=== PATIENT | female | born 1980 | race Caucasian/White ===

== ENCOUNTER 2016-11-21 17:35 | Emergency (ER) | payer MEDICAID ==
--- NOTE | 2016-11-21 18:08 | ED Physician Documentation ---
PD HPI ABD PAIN - Stated complaint Stated Complaint: ABD PX/BLOOD/V - Chief complaint Chief Complaint: Abd Pain - History obtained from History obtained from: Patient - History of Present Illness Timing - onset: How many days ago (several) Timing - duration: Days (several) Timing - details: Gradual onset Pain level max: 6 Pain level now: 5 Quality: Aching, Pain Location: All over / everywhere Improved by: Other (nothing) Worsened by: Moving, Palpation Associated symptoms: Nausea, Vomiting, Diarrhea (ostomy) Similar symptoms before: Diagnosis (crohns disease) Recently seen: Not recently seen - Additional information Additional information: Patient is a 36-year-old female with history of Crohn's disease who has a colostomy in place. She is complaining of increased abdominal pain and vomiting. States that she feels she is dehydrated. Is not currently on any steroids at home. Her GI physician is at [facility]. Review of Systems Ten Systems: 10 systems reviewed and negative Constitutional: denies: Fever, Chills Nose: denies: Rhinorrhea / runny nose, Congestion Respiratory: denies: Cough GI: reports: Abdominal Pain, Nausea, Vomiting, Other (bleeding into stoma) Skin: denies: Rash Musculoskeletal: denies: Neck pain, Back pain Neurologic: denies: Focal weakness, Numbness, Headache PD PAST MEDICAL HISTORY - Past Medical History Cardiovascular: Hypertension Respiratory: Asthma Neuro: Headache/migraine, Motion sickness Endocrine/Autoimmune: None GI: GERD, Crohn's disease FOURTH OFFICER: Other : Kidney stones HEENT: None Psych: Anxiety Musculoskeletal: Chronic back pain Derm: Other - Past Surgical History Past Surgical History: Yes General: Colonoscopy, Other Ortho: ACL reconstruction /FOURTH OFFICER: Dilation and currettage - Present Medications Home Medications: Ambulatory Orders Medication Instructions Recorded Confirmed Albuterol Sulfate [Albuterol 8.5 gm IH Q4H PRN 02/13/15 11/21/16 Sulfate Hfa] Cetirizine [ZyrTEC] 20 mg PO DAILY 02/13/15 11/21/16 Diphenhydramine HCl [Benadryl] 25 mg PO BID 02/13/15 11/21/16 Omeprazole 20 mg PO DAILY 02/13/15 11/21/16 Ranitidine HCl 150 mg PO DAILY 02/13/15 11/21/16 Promethazine [Phenergan] 25 mg PO Q6H PRN #20 tab 05/01/15 11/21/16 Epinephrine HCl in 0.9 % NaCl 05/12/15 06/05/15 [Epinephrin-0.9% NaCl 16 mg/250] Ondansetron HCl [Zofran] 4 mg PO Q6H PRN #20 tablet 11/14/15 11/21/16 Morphine ER 30 mg PO .FREQ 01/04/16 11/21/16 Entyvio Infusion 02/28/16 oxyCODONE [Roxicodone] 10 mg PO Q6H PRN #20 tablet 06/02/16 11/21/16 Dicyclomine [Bentyl] 1 tab PO BID 11/21/16 11/21/16 Prednisone 40 mg PO DAILY #10 tablet 11/21/16 Sertraline HCl [Zoloft] 100 mg PO DAILY 11/21/16 11/21/16 - Allergies Allergies/Adverse Reactions: Allergies Allergy/AdvReac Type Severity Reaction Status Date / Time infliximab [From Remicade] Allergy Severe Anaphylaxis Verified 11/21/16 17:41 Iodinated Contrast Media - Allergy Severe Hives Verified 11/21/16 17:41 Oral and [Iodinated Contrast Media - IV Dye] iodine Allergy Severe Anaphylaxis Verified 11/21/16 17:41 shellfish derived Allergy Severe Nausea/Vomi Verified 11/21/16 17:41 ting Sulfa (Sulfonamide Allergy Severe Anaphylaxis Verified 11/21/16 17:41 Antibiotics) ,Hives venom-honey bee Allergy Severe Anaphylaxis Verified 11/21/16 17:41 ,Hives certolizumab pegol Allergy Intermediate Respiratory Verified 11/21/16 17:41 [From Cimzia] ,Nausea latex Allergy Intermediate Rash Verified 11/21/16 17:41 - Social History Does the pt smoke?: No Smoking Status: Never smoker Does the pt drink ETOH?: No Does the pt have substance abuse?: No - Immunizations Immunizations are current?: Yes - POLST Patient has POLST: No PD ED PE NORMAL - Vitals Vital signs reviewed: Yes - General General: Alert and oriented X 3, No acute distress, Well developed/nourished - HEENT HEENT: PERRL, Moist mucous membranes - Neck Neck: Supple, no meningeal sign - Cardiac Cardiac: RRR, Strong equal pulses - Respiratory Respiratory: No respiratory distress, Clear bilaterally - Abdomen Abdomen: Soft, Non tender, Non distended, Other (Colostomy in place with prolapsed intestines. No visible bleeding into the colostomy bag) - Derm Derm: Warm and dry - Neuro Neuro: Alert and oriented X 3 - Psych Psych: Normal mood, Normal affect Results - Vitals Vitals: Vital Signs - 24 hr 11/21/16 11/21/16 11/21/16 17:40 19:17 19:45 Temperature 36.2 C L Heart Rate 110 H 76 82 Respiratory 18 16 16 Rate Blood Pressure 148/92 H 120/80 122/65 O2 Saturation 98 96 98 11/21/16 11/21/16 20:10 20:40 Temperature 36.5 C Heart Rate 76 88 Respiratory 18 16 Rate Blood Pressure 140/81 H 130/68 O2 Saturation 98 97 Oxygen O2 Source Room air - Labs Labs: Laboratory Tests 11/21/16 11/21/16 11/21/16 18:10 18:10 18:50 WBC 9.1 RBC 4.90 Hgb 14.0 Hct 42.6 MCV 86.8 MCH 28.6 MCHC 32.9 RDW 13.9 Plt Count 233 MPV 8.5 Neut # 8.2 H Lymph # 0.8 L [place] # 0.2 Eos # 0.0 Baso # 0.0 Absolute Nucleated RBC 0.00 Nucleated RBCs 0.0 Sodium 140 Potassium 4.0 Chloride 107 Carbon Dioxide 24 Anion Gap 9.0 BUN 13 Creatinine 0.6 Estimated GFR (MDRD) 114 Glucose 108 H Calcium 9.5 Total Bilirubin 0.4 AST 32 ALT 12 Alkaline Phosphatase 71 Total Protein 8.0 Albumin 4.2 Globulin 3.8 Albumin/Globulin Ratio 1.1 Lipase 30 Urine Color YELLOW Urine Clarity CLEAR Urine pH 5.0 Ur Specific [place] 1.020 Urine Protein NEGATIVE Urine Glucose (UA) NEGATIVE Urine Ketones NEGATIVE Urine Occult Blood NEGATIVE Urine Nitrite NEGATIVE Urine Bilirubin NEGATIVE Urine Urobilinogen 0.2 (NORMAL) Ur Leukocyte Esterase NEGATIVE Ur Microscopic Review NOT INDICATED Urine Culture Comments NOT INDICATED Urine HCG, Qual NEGATIVE PD MEDICAL DECISION MAKING - ED course Complexity details: reviewed old records, reviewed results, re-evaluated patient , considered differential, d/w patient ED course: Patient is a 36-year-old female who presents to the emergency department with an apparent flare of her Crohn's colitis. She was given IV fluids, pain medication as well as corticosteroids. I discussed admission with the patient for further bowel rest and steroids. The patient declines this at this time. She states that she would like to try going home and that she will return if she worsens. Patient is well-appearing, nontoxic. Afebrile. Patient counseled regarding signs and symptoms for which I believe and urgent re-evaluation would be necessary. Patient with good understanding of and agreement to plan and is comfortable going home at this time This document was made in part using voice recognition software. While efforts are made to proofread this document, sound alike and grammatical errors may occur. Patient does not appear to have a bowel obstruction at this time, no peritoneal signs on abdominal exam. No evidence of sepsis. No evidence of significant GI bleeding. Departure - Departure Disposition: 01 Home, Self Care Clinical Impression: Abdominal pain Crohn's colitis Qualifiers: Digestive disease complication type: without complication Qualified Code(s): K50.10 - Crohn's disease of large intestine without complications Condition: Good Instructions: Disease Crohn Dc Follow-Up: Devika Latham DO [Primary Care Provider] - Within 1 week Prescriptions: Prednisone 40 mg PO DAILY #10 tablet Comments: Return if you worsen. Discharge Date/Time: 11/21/16 20:40
[2016-11-21] MEDS ORDERED: HYDROmorphone 1 MG/ML SYRINGE IVP STA ×3 (18:16→20:01)
[2016-11-21] MEDS ORDERED: SODIUM CHLORIDE 0.9% 1,000 ML IV ONE ×2 (18:16)
[2016-11-21] MEDS ORDERED: methylPREDNISolone SUCCINATE 125 MG/2 ML VIAL IVP STA (18:16)
[2016-11-21] MEDS ORDERED: ONDANSETRON 4 MG/2 ML VIAL IVP STA (18:17)
[2016-11-21] MEDS ORDERED: ONDANSETRON 4 MG/2 ML VIAL ONE (18:21)
[2016-11-21] MEDS ORDERED: methylPREDNISolone SUCCINATE 125 MG/2 ML VIAL IVP ONE (18:21)
[2016-11-21] MEDS ORDERED: HYDROmorphone 1 MG/ML SYRINGE ONE ×3 (18:21→20:05)
[2016-11-21 18:24] LABS: BASOPHILS % (AUTO) 0.5 %; HCT - HEMATOCRIT 42.6 % (37.0-47.0); LYMPHOCYTES # (AUTO) 0.8 10^3/uL (1.5-3.5); LYMPHOCYTES % (AUTO) 8.2 %; MEAN CORPUSCULAR HEMOGLOBIN 28.6 pg (27.0-31.0); MEAN CORPUSCULAR HGB CONC 32.9 g/dL (32.0-36.0); MEAN CORPUSCULAR VOLUME 86.8 fL (81.0-99.0); MEAN PLATELET VOLUME 8.5 fL (7.9-10.8); MONOCYTES # (AUTO) 0.2 10^3/uL (0.0-1.0); MONOCYTES % (AUTO) 1.9 %; NEUTROPHILS # (AUTO) 8.2 10^3/uL (1.5-6.6); NEUTROPHILS % (AUTO) 89.4 %; RED CELL DISTRIBUTION WIDTH 13.9 % (12.0-15.0); UNCORRECTED WHITE BLOOD COUNT 9.1 x10^3/uL; WHITE BLOOD COUNT 9.1 x10^3/uL (4.8-10.8)
[2016-11-21 18:34] LABS: ALBUMIN/GLOBULIN RATIO 1.1 (1.0-2.2); BILIRUBIN,TOTAL 0.4 mg/dL (0.2-1.0); CALCIUM 9.5 mg/dL (8.5-10.3); CREATININE 0.6 mg/dL (0.4-1.0)
[2016-11-21 19:10] LABS: BILIRUBIN,URINE NEGATIVE (NEGATIVE)
[2016-11-21 19:12] LABS: HCG UR QUAL NEGATIVE; UA CHARGE (STRIP ONLY) YES; UR CULTURE IF IND NOT INDICATED
[2016-11-21] MEDS ORDERED: SUMAtriptan 6 MG/0.5 ML VIAL SUBQ STA (20:01)
[2016-11-21] MEDS ORDERED: SUMAtriptan 6 MG/0.5 ML VIAL SUBQ ONE (20:05)
[2016-11-21 20:44] VITALS: BP 130/68
== END 2016-11-21 20:40 | disposition home or self-care (01) ==
LOC: ED 17:35
DX: K50.10 Crohn's disease of large intestine without complications (principal); R10.84 Generalized abdominal pain
CPT/HCPCS: 80053; 81003; 81025; 83690; 85025; 96361; 96372; 96374; 96375; 96376; 99284; 99285; J1170; 81001; 87086

== ENCOUNTER 2016-12-09 00:49 | Outpatient (CLI) | payer MEDICAID | END 2016-12-09 00:50 | disposition critical access hospital (66) | LOC: EMS 00:49 | PROVIDERS: ATTEND Surgery | DX: R10.9 Unspecified abdominal pain (principal) | CPT/HCPCS: A0425; A0427 ==

== ENCOUNTER 2016-12-09 01:08 | Emergency (ER) | payer MEDICAID ==
[2016-12-09] MEDS ORDERED: HYDROmorphone 1 MG/ML SYRINGE IVP STA ×4 (01:16→04:12)
[2016-12-09] MEDS ORDERED: ONDANSETRON 4 MG/2 ML VIAL IVP STA (01:16)
[2016-12-09] MEDS ORDERED: methylPREDNISolone SUCCINATE 40 MG/ML VIAL IVP STA (01:17)
[2016-12-09] MEDS ORDERED: HYDROmorphone 1 MG/ML SYRINGE ONE ×4 (01:21→04:15)
[2016-12-09] MEDS ORDERED: ONDANSETRON 4 MG/2 ML VIAL ONE (01:21)
[2016-12-09] MEDS ORDERED: methylPREDNISolone SUCCINATE 40 MG/ML VIAL ONE (01:21)
== END 2016-12-09 04:58 | disposition short-term general hospital (02) ==
DX: K43.3 Parastomal hernia with obstruction, without gangrene (principal); K50.114 Crohn's disease of large intestine with abscess; K50.113 Crohn's disease of large intestine with fistula; Z93.2 Ileostomy status; K80.80 Other cholelithiasis without obstruction; I10 Essential (primary) hypertension
CPT/HCPCS: 36415; 74176; 80053; 83605; 83690; 84703; 85025; 96374; 96375; 96376; 99284; J1170

== ENCOUNTER 2016-12-09 04:46 | Outpatient (CLI) | payer MEDICAID | END 2016-12-09 04:47 | disposition short-term general hospital (02) | LOC: EMS 04:46 | PROVIDERS: ATTEND Surgery | DX: R10.9 Unspecified abdominal pain (principal) | CPT/HCPCS: A0425; A0426 ==

== ENCOUNTER 2016-12-16 07:35 | Outpatient (CLI) | payer MEDICAID | END 2016-12-16 07:36 | disposition critical access hospital (66) | LOC: EMS 07:35 | PROVIDERS: ATTEND Surgery | DX: R10.9 Unspecified abdominal pain (principal) | CPT/HCPCS: A0425; A0429 ==

== ENCOUNTER 2016-12-16 07:59 | Emergency (ER) | payer MEDICAID ==
[2016-12-16] MEDS ORDERED: PIPERACILLIN/TAZOBACTAM 3.375 GM in SODIUM CHLORIDE 0.9% MINIBAG 100 ML IV STA (08:11)
[2016-12-16] MEDS ORDERED: VANCOMYCIN INJ 1 GM in SODIUM CHLORIDE 0.9% 250 ML IV STA (08:11)
[2016-12-16] MEDS ORDERED: HYDROmorphone 1 MG/ML SYRINGE IVP STA ×3 (08:11→10:15)
[2016-12-16] MEDS ORDERED: HYDROmorphone 1 MG/ML SYRINGE ONE ×2 (08:21→10:31)
--- NOTE | 2016-12-16 08:28 | ED Physician Documentation ---
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 and numerous surgeries seen at [facility] and transferred to [facility] last week per pt report it sounds like she had a blockage related to the ostomy - perhaps a volvulus or intuss through the stoma (calling for CT and op report, paperwork pt brings with her from ostomy care - in any case she required emergent surgery , was admitted to [facility] for several days and was dced yesterday and arrived home last night this AM 5 AM she developed severe pain to the ostomy site and intractable NV no fever no CP SOA (hx PE was on lovenox during her [facility] stay until yesterday) + stool into bag erythema to abd wall noted in ER which pt states is new Review of Systems Constitutional: denies: Fever, Chills Cardiac: denies: Chest pain / pressure Respiratory: denies: Dyspnea GI: reports: Abdominal Pain, Nausea, Vomiting. 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: Other : Kidney stones HEENT: None Psych: Anxiety Musculoskeletal: Chronic back pain Derm: Other - Past Surgical History Past Surgical History: Yes General: Colonoscopy, Other Ortho: ACL reconstruction /PRODUCT MANAGENT INTERN: Dilation and currettage - Present Medications Home Medications: Ambulatory Orders Medication Instructions Recorded Confirmed Albuterol Sulfate [Albuterol 8.5 gm IH Q4H PRN 02/13/15 12/16/16 Sulfate Hfa] Cetirizine [ZyrTEC] 20 mg PO DAILY 02/13/15 12/16/16 Diphenhydramine HCl [Benadryl] 25 mg PO BID 02/13/15 12/16/16 Omeprazole 20 mg PO DAILY 02/13/15 12/16/16 Ranitidine HCl 150 mg PO DAILY 02/13/15 12/16/16 Promethazine [Phenergan] 25 mg PO Q6H PRN #20 tab 05/01/15 12/16/16 Epinephrine HCl in 0.9 % NaCl 1 mg IM PRN PRN 05/12/15 12/16/16 [Epinephrin-0.9% NaCl 16 mg/250] Morphine ER 30 mg PO .FREQ 01/04/16 12/16/16 Entyvio Infusion 1 mg INJ MAINTENANCE.IV 02/28/16 12/16/16 oxyCODONE [Roxicodone] 10 mg PO Q6H PRN #20 tablet 06/02/16 12/16/16 Dicyclomine [Bentyl] 10 tab PO BID 11/21/16 12/16/16 Sertraline HCl [Zoloft] 100 mg PO DAILY 11/21/16 12/16/16 Prednisone 30 mg PO DAILY 12/09/16 12/16/16 - Allergies Allergies/Adverse Reactions: Allergies Allergy/AdvReac Type Severity Reaction Status Date / Time infliximab [From Remicade] Allergy Severe Anaphylaxis Verified 12/09/16 01:17 Iodinated Contrast Media - Allergy Severe Hives Verified 12/09/16 01:17 Oral and [Iodinated Contrast Media - IV Dye] iodine Allergy Severe Anaphylaxis Verified 12/09/16 01:17 shellfish derived Allergy Severe Nausea/Vomi Verified 12/09/16 01:17 ting Sulfa (Sulfonamide Allergy Severe Anaphylaxis Verified 12/09/16 01:17 Antibiotics) ,Hives venom-honey bee Allergy Severe Anaphylaxis Verified 12/09/16 01:17 ,Hives certolizumab pegol Allergy Intermediate Respiratory Verified 12/09/16 01:17 [From Cimzia] ,Nausea latex Allergy Intermediate Rash Verified 12/09/16 01:17 - Social History Does the pt smoke?: No Smoking Status: Never smoker Does the pt drink ETOH?: No Does the pt have substance abuse?: No - Immunizations Immunizations are current?: Yes - POLST Patient has POLST: No PD ED PE NORMAL - Vitals Vital signs reviewed: Yes - General General: Alert and oriented X 3 - Neck Neck: Supple, no meningeal sign - Cardiac Cardiac: RRR - Respiratory Respiratory: No respiratory distress, Clear bilaterally - Abdomen Abdomen: Soft, Other (+ BS, soft, right abd ostomy dark red with some greyish discoloration to the visible bowel superior aspect, clear brown liquid in the bag, extensive surrounding erythema which pt reports is new, no crepitus) - Derm Derm: Other (abd wall eryythema) - Neuro Neuro: Alert and oriented X 3 Results - Vitals Vitals: Vital Signs - 24 hr 12/16/16 12/16/16 12/16/16 08:05 09:10 10:40 Temperature 36.2 C L 37.2 C Heart Rate 78 69 111 H Respiratory 28 H 21 20 Rate Blood Pressure 118/99 H 115/64 111/61 O2 Saturation 98 96 95 12/16/16 12:15 Temperature Heart Rate 80 Respiratory 20 Rate Blood Pressure 137/81 H O2 Saturation 98 Oxygen O2 Source Room air - Labs Labs: Laboratory Tests 12/16/16 12/16/16 12/16/16 08:19 08:19 08:19 WBC 9.4 RBC 4.34 Hgb 12.6 Hct 38.0 MCV 87.7 MCH 28.9 MCHC 33.0 RDW 14.7 Plt Count 243 MPV 8.3 Neut # 6.9 H Lymph # 1.8 [place] # 0.6 Eos # 0.1 Baso # 0.0 Absolute Nucleated RBC 0.00 Nucleated RBCs 0.0 Sodium 140 Potassium 3.2 L Chloride 103 Carbon Dioxide 28 Anion Gap 9.0 BUN 8 Creatinine 0.6 Estimated GFR (MDRD) 114 Glucose 109 H Lactic Acid 1.6 Calcium 8.8 Total Bilirubin 0.6 AST 17 ALT 12 Alkaline Phosphatase 43 Total Protein 6.7 Albumin 3.3 Globulin 3.4 Albumin/Globulin Ratio 1.0 Lipase 45 Serum HCG, Qual 12/16/16 08:19 WBC RBC Hgb Hct MCV MCH MCHC RDW Plt Count MPV Neut # Lymph # [place] # Eos # Baso # Absolute Nucleated RBC Nucleated RBCs Sodium Potassium Chloride Carbon Dioxide Anion Gap BUN Creatinine Estimated GFR (MDRD) Glucose Lactic Acid Calcium Total Bilirubin AST ALT Alkaline Phosphatase Total Protein Albumin Globulin Albumin/Globulin Ratio Lipase Serum HCG, Qual NEGATIVE - Rads (name of study) CT abd pelvis Radiology: See rad report (RUQ ostomy, parastomal hernia is smaller, hazy infiltratton of the fat in the ostomy c/w inflammatory dz, no fluid collection, no intramural gas collection or bowel wall thickening to suggest ischemia, mild bowel dilitation LUQ small bowel up to 4.1 cm, no FF free air, other chronic findings) PD MEDICAL DECISION MAKING - ED course ED course: received dc summary from [facility] - seems that pt had prolapse of the defunctionalized limb or the ileostomy with a large redundant loop that adhesed to the fascial edge and causing int vlvulus and obstruction - pt had this operated on ostomy appears a bit dark and dusky with possibly some ischemic discoloration superiorly - but seen by ostomy nurse who felt it seemed normal post op and subsequent CTdoes not indicate ischemia and the device does not seem to be too tight around the stoma, but ostomy nurse did note that there was no further output during her evaluation also seem to have extensive abd wall cellulitis - continuing to spread while in the ER, no cepritus, no subcut gas on CT - gave malcolmo and alfred after blood cx CT shows some dilated small bowel and there is no output in the ER thus far - but no clear obstruction in CT will call [facility] to discuss transferring pt back - Dr Mg accepts, transfer center [facility] confirms bed availability prior to transfer the stoma output did start again - approx 20 ml in bag at time of transfer Departure - Departure Disposition: 02 Transfer Acute Care Hosp Clinical Impression: Postoperative abdominal pain Condition: Fair Discharge Date/Time: 12/16/16 12:40
[2016-12-16] MEDS ORDERED: ONDANSETRON 4 MG/2 ML VIAL IVP STA ×2 (08:29→11:08)
[2016-12-16] MEDS ORDERED: SODIUM CHLORIDE 0.9% 1,000 ML IV ONE ×2 (08:29)
[2016-12-16] MEDS ORDERED: ONDANSETRON 4 MG/2 ML VIAL ONE ×2 (08:29→11:34)
[2016-12-16 08:33] LABS: BASOPHILS % (AUTO) 0.5 %; EOSINOPHILS # (AUTO) 0.1 10^3/uL (0.0-0.7); EOSINOPHILS % (AUTO) 0.9 %; HGB - HEMOGLOBIN 12.6 g/dL (12.0-16.0); LYMPHOCYTES # (AUTO) 1.8 10^3/uL (1.5-3.5); LYMPHOCYTES % (AUTO) 19.1 %; MEAN CORPUSCULAR HEMOGLOBIN 28.9 pg (27.0-31.0); MEAN CORPUSCULAR VOLUME 87.7 fL (81.0-99.0); MEAN PLATELET VOLUME 8.3 fL (7.9-10.8); MONOCYTES # (AUTO) 0.6 10^3/uL (0.0-1.0); MONOCYTES % (AUTO) 5.9 %; NEUTROPHILS # (AUTO) 6.9 10^3/uL (1.5-6.6); NEUTROPHILS % (AUTO) 73.6 %; RED BLOOD COUNT 4.34 10^6/uL (4.20-5.40); RED CELL DISTRIBUTION WIDTH 14.7 % (12.0-15.0); UNCORRECTED WHITE BLOOD COUNT 9.4 x10^3/uL; WHITE BLOOD COUNT 9.4 x10^3/uL (4.8-10.8)
[2016-12-16 08:45] LABS: BILIRUBIN,TOTAL 0.6 mg/dL (0.2-1.0); CALCIUM 8.8 mg/dL (8.5-10.3); CREATININE 0.6 mg/dL (0.4-1.0); POTASSIUM 3.2 mmol/L (3.5-5.0); TOTAL PROTEIN 6.7 g/dL (6.7-8.2)
--- NOTE | 2016-12-16 10:00 | CT Preliminary Report ---
Exam: CT Abdomen/Pelvis W/O IMPRESSION: 1. Infiltration of stomal fat compatible with inflammatory disease. 2. Mild dilation of left upper quadrant small bowel. 3. Cholelithiasis, left renal lithiasis, and other chronic or incidental findings. [facility] SITE ID: [id number]
--- NOTE | 2016-12-16 10:03 | CT Report ---
EXAM: CT ABDOMEN AND PELVIS EXAM DATE: 12/16/2016 09:35 AM. CLINICAL HISTORY: Post op pain, ostomy appears infected/? ischemic. COMPARISONS: 12/09/2016. TECHNIQUE: Routine helical CT imaging was performed through the abdomen and pelvis. IV contrast: None . Enteric contrast: No. Reconstructions: Coronal and sagittal. In accordance with CT protocol optimization, one or more of the following dose reduction techniques w ere utilized for this exam: automated exposure control, adjustment of mA and/or KV based on patient s ize, or use of iterative reconstructive technique. FINDINGS: Lung Bases: Unremarkable. Liver: Normal. No masses. Gallbladder/Bile Ducts: Gallstones. No ductal dilation. Spleen: Normal. Pancreas: Normal. Adrenal Glands: Normal. Kidneys: Multiple nonobstructing left renal calculi. No ureteral stone. No hydronephrosis. Peritoneal Cavity/Bowel: Right upper quadrant ostomy. Parastomal hernia of bowel much less prominent. Fecalization has resolved. Hazy infiltration of fat in the ostomy, compatible with clinical finding of inflammatory disease, but no definite fluid collection. Mild bowel dilation, with mostly fluid-misti led left upper quadrant small bowel loops measuring up to 4.1 cm. No mural gas, significant bowel wal l thickening, or other evidence of ischemia. No free fluid, free air, or lymphadenopathy. Unremarkabl e region of appendix. Pelvic Organs: Abnormal soft tissue in the right ischioanal fossa again noted, incompletely seen. The bladder and visualized pelvic organs are within normal limits. Vasculature: No aneurysms or other significant abnormality. Bones: No significant abnormality. Other: None. IMPRESSION: 1. Infiltration of stomal fat compatible with inflammatory disease. 2. Mild dilation of left upper quadrant small bowel. 3. Cholelithiasis, left renal lithiasis, and other chronic or incidental findings. [facility] Referring Provider Line: [phone] SITE ID: [id number]
[2016-12-16] MEDS ORDERED: POTASSIUM CHLOR 20 MEQ/100 ML 100 ML IV ONE (10:16)
[2016-12-16] MEDS ORDERED: POTASSIUM CHLOR 10 MEQ/100 ML 100 ML IV SCH (11:00)
[2016-12-16] MEDS ORDERED: POTASSIUM CHLOR 10 MEQ/100 ML 100 ML IV ONE (11:34)
[2016-12-16 13:58] VITALS: BP 137/81
== END 2016-12-16 12:40 | disposition short-term general hospital (02) ==
LOC: ED 07:59
DX: G89.18 Other acute postprocedural pain (principal); Z93.2 Ileostomy status; K50.90 Crohn's disease, unspecified, without complications; I10 Essential (primary) hypertension; J45.909 Unspecified asthma, uncomplicated; K21.9 Gastro-esophageal reflux disease without esophagitis; Z87.442 Personal history of urinary calculi
CPT/HCPCS: 36415; 74176; 80053; 83605; 83690; 84703; 85025; 87040; 96361; 96365; 96367; 96375; 96376; 99284; 99285; J1170

== ENCOUNTER 2016-12-16 12:28 | Outpatient (CLI) | payer MEDICAID | END 2016-12-16 12:29 | disposition short-term general hospital (02) | LOC: EMS 12:28 | PROVIDERS: ATTEND Surgery | DX: R10.9 Unspecified abdominal pain (principal) | CPT/HCPCS: A0425; A0426 ==

== ENCOUNTER 2016-12-22 11:18 | Emergency (ER) | payer MEDICAID ==
[2016-12-22] MEDS ORDERED: LACTATED RINGERS 1,000 ML IV STA (12:38)
[2016-12-22] MEDS ORDERED: SODIUM CHLORIDE 0.9% 1,000 ML IV ONE ×2 (12:38→12:59)
[2016-12-22] MEDS ORDERED: HYDROmorphone 1 MG/ML SYRINGE IVP STA (12:38)
[2016-12-22] MEDS ORDERED: ONDANSETRON 4 MG/2 ML VIAL IVP STA (12:38)
--- NOTE | 2016-12-22 12:42 | ED Physician Documentation ---
PD HPI ABD PAIN - Stated complaint Stated Complaint: N/V,ABD PX - Chief complaint Chief Complaint: Abd Pain - History obtained from History obtained from: Patient - History of Present Illness Timing - onset: Other (About 7 days postop from an ileostomy revision at [facility]. She is on high-dose pain medication, 30 mg of MS Contin twice a day and 5 mg of oxycodone every few hours. She got behind on her pain medication and started vomiting and now has abdominal cramps and high ostomy output and is unable to keep down her meds. No fevers.) Review of Systems Constitutional: reports: Fatigue. denies: Fever, Chills Cardiac: denies: Chest pain / pressure, Palpitations Respiratory: denies: Dyspnea, Cough GI: reports: Abdominal Pain, Nausea, Vomiting, Diarrhea. 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 : Kidney stones HEENT: None Psych: Anxiety Musculoskeletal: Chronic back pain Derm: Other - Past Surgical History Past Surgical History: Yes General: Colonoscopy, Other Ortho: ACL reconstruction /TISSUE INSERTER: Dilation and currettage - Present Medications Home Medications: Ambulatory Orders Medication Instructions Recorded Confirmed Albuterol Sulfate [Albuterol 8.5 gm IH Q4H PRN 02/13/15 12/22/16 Sulfate Hfa] Cetirizine [ZyrTEC] 20 mg PO DAILY 02/13/15 12/22/16 Diphenhydramine HCl [Benadryl] 25 mg PO BID 02/13/15 12/22/16 Omeprazole 20 mg PO DAILY 02/13/15 12/22/16 Ranitidine HCl 150 mg PO DAILY 02/13/15 12/22/16 Promethazine [Phenergan] 25 mg PO Q6H PRN #20 tab 05/01/15 12/22/16 Epinephrine HCl in 0.9 % NaCl 1 mg IM PRN PRN 05/12/15 12/22/16 [Epinephrin-0.9% NaCl 16 mg/250] Morphine ER 30 mg PO .FREQ 01/04/16 12/22/16 Entyvio Infusion 1 mg INJ MAINTENANCE.IV 02/28/16 12/22/16 oxyCODONE [Roxicodone] 10 mg PO Q6H PRN #20 tablet 06/02/16 12/22/16 Dicyclomine [Bentyl] 10 tab PO BID 11/21/16 12/22/16 Sertraline HCl [Zoloft] 100 mg PO DAILY 11/21/16 12/22/16 Prednisone 30 mg PO DAILY 12/09/16 12/22/16 - Allergies Allergies/Adverse Reactions: Allergies Allergy/AdvReac Type Severity Reaction Status Date / Time infliximab [From Remicade] Allergy Severe Anaphylaxis Verified 12/22/16 11:30 Iodinated Contrast Media - Allergy Severe Hives Verified 12/22/16 11:30 Oral and [Iodinated Contrast Media - IV Dye] iodine Allergy Severe Anaphylaxis Verified 12/22/16 11:30 shellfish derived Allergy Severe Nausea/Vomi Verified 12/22/16 11:30 ting Sulfa (Sulfonamide Allergy Severe Anaphylaxis Verified 12/22/16 11:30 Antibiotics) ,Hives venom-honey bee Allergy Severe Anaphylaxis Verified 12/22/16 11:30 ,Hives certolizumab pegol Allergy Intermediate Respiratory Verified 12/22/16 11:30 [From Cimzia] ,Nausea latex Allergy Intermediate Rash Verified 12/22/16 11:30 - Social History Does the pt smoke?: No Smoking Status: Never smoker Does the pt drink ETOH?: No Does the pt have substance abuse?: No - Immunizations Immunizations are current?: Yes - POLST Patient has POLST: No PD ED PE NORMAL - Vitals Vital signs reviewed: Yes - General General: Alert and oriented X 3, No acute distress - Abdomen Abdomen: Normal bowel sounds, Soft, Non tender, Other (Ostomy with watery output , ostomy itself looks fine) - Neuro Neuro: Alert and oriented X 3, Normal speech - Psych Psych: Normal mood, Normal affect Results - Vitals Vitals: Vital Signs - 24 hr 12/22/16 12/22/16 12/22/16 11:20 12:45 13:13 Temperature 36 C L Heart Rate 104 H 86 101 H Respiratory 18 20 18 Rate Blood Pressure 146/101 H 118/68 111/70 O2 Saturation 96 95 96 Oxygen O2 Source Room air - Labs Labs: Laboratory Tests 12/22/16 12/22/16 12:50 13:43 WBC 11.3 H RBC 5.21 Hgb 15.1 Hct 45.9 MCV 88.1 MCH 29.1 MCHC 33.0 RDW 14.8 Plt Count 372 MPV 8.1 Neut # 8.4 H Lymph # 2.0 [place] # 0.7 Eos # 0.1 Baso # 0.1 Absolute Nucleated RBC 0.00 Nucleated RBCs 0.0 Sodium 141 Potassium 3.6 Chloride 101 Carbon Dioxide 28 Anion Gap 12.0 BUN 18 Creatinine 0.7 Estimated GFR (MDRD) 95 Glucose 121 H Calcium 9.5 Total Bilirubin 0.7 AST 22 ALT 13 Alkaline Phosphatase 44 Total Protein 7.6 Albumin 3.8 Globulin 3.8 Albumin/Globulin Ratio 1.0 Lipase 34 PD MEDICAL DECISION MAKING - ED course ED course: 36-year-old woman with recent ileostomy revision presents with vomiting and high ostomy output likely related to narcotic withdrawal from missing doses. After IV fluids, Zofran, and IV narcotics she was feeling much better. Departure - Departure Disposition: 01 Home, Self Care Clinical Impression: Acute narcotic withdrawal, Abdominal pain Vomiting Qualifiers: Vomiting type: unspecified Vomiting Intractability: non-intractable Nausea presence: with nausea Qualified Code(s): R11.2 - Nausea with vomiting, unspecified Condition: Good Record reviewed to determine appropriate education?: Yes Instructions: ED Nausea Vomiting Comments: Call your doctor to arrange a follow up appointment. Make the next available appointment. In the interim return anytime if worse or if new symptoms develop.
[2016-12-22] MEDS ORDERED: HYDROmorphone 1 MG/ML SYRINGE ONE (12:59)
[2016-12-22] MEDS ORDERED: ONDANSETRON 4 MG/2 ML VIAL ONE (12:59)
[2016-12-22 13:12] LABS: BASOPHILS # (AUTO) 0.1 10^3/uL (0.0-0.1); BASOPHILS % (AUTO) 0.7 %; EOSINOPHILS # (AUTO) 0.1 10^3/uL (0.0-0.7); EOSINOPHILS % (AUTO) 0.6 %; HCT - HEMATOCRIT 45.9 % (37.0-47.0); HGB - HEMOGLOBIN 15.1 g/dL (12.0-16.0); LYMPHOCYTES % (AUTO) 17.5 %; MEAN CORPUSCULAR HEMOGLOBIN 29.1 pg (27.0-31.0); MEAN CORPUSCULAR VOLUME 88.1 fL (81.0-99.0); MEAN PLATELET VOLUME 8.1 fL (7.9-10.8); MONOCYTES # (AUTO) 0.7 10^3/uL (0.0-1.0); MONOCYTES % (AUTO) 6.6 %; NEUTROPHILS # (AUTO) 8.4 10^3/uL (1.5-6.6); NEUTROPHILS % (AUTO) 74.6 %; RED BLOOD COUNT 5.21 10^6/uL (4.20-5.40); RED CELL DISTRIBUTION WIDTH 14.8 % (12.0-15.0); UNCORRECTED WHITE BLOOD COUNT 11.3 x10^3/uL; WHITE BLOOD COUNT 11.3 x10^3/uL (4.8-10.8)
[2016-12-22 14:02] LABS: BILIRUBIN,TOTAL 0.7 mg/dL (0.2-1.0); CALCIUM 9.5 mg/dL (8.5-10.3); CREATININE 0.7 mg/dL (0.4-1.0); POTASSIUM 3.6 mmol/L (3.5-5.0); TOTAL PROTEIN 7.6 g/dL (6.7-8.2)
[2016-12-22] MEDS ORDERED: MORPHINE ER 15 MG TABLET PO STA (14:17)
[2016-12-22 14:18] VITALS: BP 129/61
== END 2016-12-22 14:41 | disposition home or self-care (01) ==
LOC: ED 11:18
DX: F11.23 Opioid dependence with withdrawal (principal); R10.9 Unspecified abdominal pain; R11.2 Nausea with vomiting, unspecified; T40.2X6A Underdosing of other opioids, initial encounter; Z91.138 Patient's unintentional underdosing of medication regimen for other reason; I10 Essential (primary) hypertension; K21.9 Gastro-esophageal reflux disease without esophagitis; K50.90 Crohn's disease, unspecified, without complications; Z93.2 Ileostomy status; Z79.52 Long term (current) use of systemic steroids
CPT/HCPCS: 36415; 80053; 83690; 85025; 96361; 96374; 96375; 99283; 99284; A9270; J1170

== ENCOUNTER 2017-01-16 20:45 | Emergency (ER) | payer MEDICAID ==
--- NOTE | 2017-01-16 22:07 | ED Physician Documentation ---
PD HPI ABD PAIN - Stated complaint Stated Complaint: ABD PX - Chief complaint Chief Complaint: Wound - History obtained from History obtained from: Patient - History of Present Illness Timing - onset: How many days ago (2-3) Timing - details: Gradual onset Pain level now: 8 Quality: Pain Radiation: Other (no radiation) Improved by: Laying still Worsened by: Palpation Associated symptoms: No: Fever, Nausea, Vomiting Recently seen: Not recently seen - Additional information Additional information: patient has Crohn's disease, c/o 2-3 days of waxing and waning (size and pain) mass right buttock. 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 She contacted her GI physician rena and was advised to go to ED for antibiotics "and something for the pain , maybe an anti-inflammatory" (per patient). 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: Other : Kidney stones HEENT: None Psych: Anxiety Musculoskeletal: Chronic back pain Derm: Other - Past Surgical History Past Surgical History: Yes General: Bowel surgery, Gastric surgery, Colonoscopy, Other Ortho: ACL reconstruction /ELECTRIC POWERLINE EXAMINER: Dilation and currettage - Present Medications Home Medications: Ambulatory Orders Medication Instructions Recorded Confirmed Albuterol Sulfate [Albuterol 8.5 gm IH Q4H PRN 02/13/15 12/22/16 Sulfate Hfa] Cetirizine [ZyrTEC] 20 mg PO DAILY 02/13/15 12/22/16 Diphenhydramine HCl [Benadryl] 25 mg PO BID 02/13/15 12/22/16 Omeprazole 20 mg PO DAILY 02/13/15 12/22/16 Ranitidine HCl 150 mg PO DAILY 02/13/15 12/22/16 Promethazine [Phenergan] 25 mg PO Q6H PRN #20 tab 05/01/15 12/22/16 Epinephrine HCl in 0.9 % NaCl 1 mg IM PRN PRN 05/12/15 12/22/16 [Epinephrin-0.9% NaCl 16 mg/250] Morphine ER 30 mg PO .FREQ 01/04/16 12/22/16 Entyvio Infusion 1 mg INJ MAINTENANCE.IV 02/28/16 12/22/16 oxyCODONE [Roxicodone] 10 mg PO Q6H PRN #20 tablet 06/02/16 12/22/16 Dicyclomine [Bentyl] 10 tab PO BID 11/21/16 12/22/16 Sertraline HCl [Zoloft] 100 mg PO DAILY 11/21/16 12/22/16 Prednisone 30 mg PO DAILY 12/09/16 12/22/16 Ciprofloxacin HCl [Cipro] 500 mg PO BID #19 tablet 01/16/17 - Allergies Allergies/Adverse Reactions: Allergies Allergy/AdvReac Type Severity Reaction Status Date / Time infliximab [From Remicade] Allergy Severe Anaphylaxis Verified 01/16/17 21:04 Iodinated Contrast- Oral and Allergy Severe Hives Verified 01/16/17 21:04 IV Dye [Iodinated Contrast Media - IV Dye] iodine Allergy Severe Anaphylaxis Verified 01/16/17 21:04 shellfish derived Allergy Severe Nausea/Vomi Verified 01/16/17 21:04 ting Sulfa (Sulfonamide Allergy Severe Anaphylaxis Verified 01/16/17 21:04 Antibiotics) ,Hives venom-honey bee Allergy Severe Anaphylaxis Verified 01/16/17 21:04 ,Hives certolizumab pegol Allergy Intermediate Respiratory Verified 01/16/17 21:04 [From Cimzia] ,Nausea latex Allergy Intermediate Rash Verified 01/16/17 21:04 - Social History Does the pt smoke?: No Smoking Status: Former smoker Does the pt drink ETOH?: No Does the pt have substance abuse?: No - Immunizations Immunizations are current?: Yes - POLST Patient has POLST: No PD ED PE NORMAL - Vitals Vital signs reviewed: Yes - General General: Alert and oriented X 3, No acute distress, Well developed/nourished - Abdomen Abdomen: Normal bowel sounds, Soft, Non tender, Non distended, Other (ostomy bag in place, empty. ) PD ED PE EXPANDED - Female Female visual: 1 - tenderness (half-dollar size (diameter) firm, tender nodule without fluctuance or discharge. there is mild surrounding erythema. I also note two sites of cutaneous fistula adjacent to this area (near the area but clear of the nodule as well as the erythema)) Results - Vitals Vitals: Vital Signs - 24 hr 01/16/17 21:00 Temperature 36.3 C L Heart Rate 97 Respiratory 17 Rate Blood Pressure 122/83 H O2 Saturation 97 Oxygen O2 Source Room air PD MEDICAL DECISION MAKING - ED course Complexity details: reviewed old records, considered differential, d/w patient ED course: Patient feels that when the abscesses she's had in the past are in this early stage, antibiotics alone tend to work well, Cipro specifically. She will return if worse in any way, and will f/u with her GI physician as soon as next appointment is available. Departure - Departure Disposition: 01 Home, Self Care Clinical Impression: Abscess Condition: Good Instructions: ED Staph Infec Abx Tx Only Follow-Up: Devika Latham DO [Primary Care Provider] - (3-5 days) Prescriptions: Ciprofloxacin HCl [Cipro] 500 mg PO BID #19 tablet
[2017-01-16] MEDS ORDERED: KETOROLAC 60 MG/2 ML VIAL IM STA (22:32)
[2017-01-16] MEDS ORDERED: HYDROmorphone 1 MG/ML SYRINGE IM STA (22:32)
[2017-01-16] MEDS ORDERED: CIPROFLOXACIN 250 MG TABLET PO STA (22:35)
[2017-01-16] MEDS ORDERED: HYDROmorphone 1 MG/ML SYRINGE ONE (22:38)
[2017-01-16] MEDS ORDERED: CIPROFLOXACIN 250 MG TABLET PO ONE (22:38)
[2017-01-16] MEDS ORDERED: KETOROLAC 60 MG/2 ML VIAL ONE (22:38)
[2017-01-16 23:08] VITALS: BP 120/74
== END 2017-01-16 23:08 | disposition home or self-care (01) ==
LOC: ED 20:45
DX: L02.31 Cutaneous abscess of buttock (principal); I10 Essential (primary) hypertension; K50.90 Crohn's disease, unspecified, without complications
CPT/HCPCS: 96372; 99283; A9270; J1170

== ENCOUNTER 2017-01-24 20:01 | Emergency (ER) | payer MEDICAID ==
[2017-01-24] MEDS ORDERED: HYDROmorphone 1 MG/ML SYRINGE IVP STA ×4 (20:31→23:48)
[2017-01-24] MEDS ORDERED: SODIUM CHLORIDE 0.9% 1,000 ML IV ONE (20:31)
[2017-01-24] MEDS ORDERED: KETOROLAC 60 MG/2 ML VIAL IVP STA (20:31)
[2017-01-24] MEDS ORDERED: ONDANSETRON 4 MG/2 ML VIAL IVP STA (20:31)
[2017-01-24] MEDS ORDERED: HYDROmorphone 1 MG/ML SYRINGE ONE ×4 (20:35→23:53)
[2017-01-24] MEDS ORDERED: KETOROLAC 30 MG/ML VIAL ONE (20:35)
[2017-01-24] MEDS ORDERED: ONDANSETRON 4 MG/2 ML VIAL ONE (20:35)
[2017-01-24 20:50] LABS: BASOPHILS # (AUTO) 0.1 10^3/uL (0.0-0.1); BASOPHILS % (AUTO) 0.7 %; EOSINOPHILS # (AUTO) 0.1 10^3/uL (0.0-0.7); LYMPHOCYTES % (AUTO) 23.6 %; MEAN CORPUSCULAR HEMOGLOBIN 29.1 pg (27.0-31.0); MEAN CORPUSCULAR HGB CONC 33.2 g/dL (32.0-36.0); MEAN CORPUSCULAR VOLUME 87.6 fL (81.0-99.0); MEAN PLATELET VOLUME 8.2 fL (7.9-10.8); MONOCYTES # (AUTO) 0.5 10^3/uL (0.0-1.0); MONOCYTES % (AUTO) 6.2 %; NEUTROPHILS # (AUTO) 5.8 10^3/uL (1.5-6.6); NEUTROPHILS % (AUTO) 68.5 %; NUCLEATED RED BLOOD CELLS AUTO 0.1 /100WBC; RED BLOOD COUNT 4.46 10^6/uL (4.20-5.40); RED CELL DISTRIBUTION WIDTH 14.3 % (12.0-15.0); UNCORRECTED WHITE BLOOD COUNT 8.5 x10^3/uL; WHITE BLOOD COUNT 8.5 x10^3/uL (4.8-10.8)
[2017-01-24 21:01] LABS: ALBUMIN/GLOBULIN RATIO 1.1 (1.0-2.2); BILIRUBIN,TOTAL 0.7 mg/dL (0.2-1.0); CALCIUM 9.1 mg/dL (8.5-10.3); CREATININE 0.7 mg/dL (0.4-1.0); POTASSIUM 3.9 mmol/L (3.5-5.0); TOTAL PROTEIN 7.3 g/dL (6.7-8.2)
[2017-01-24] MEDS ORDERED: DEXAMETHASONE 10 MG/ML VIAL IVP STA (21:20)
[2017-01-24 21:22] LABS: PH,URINE 5.5 PH (5.0-7.5)
[2017-01-24] MEDS ORDERED: DEXAMETHASONE 10 MG/ML VIAL ONE (21:22)
[2017-01-24 21:44] LABS: BILIRUBIN,URINE NEGATIVE (NEGATIVE); UA w/ MICROSCOPIC CHARGE YES
[2017-01-24 21:45] LABS: UR CULTURE IF IND NOT INDICATED; WBC,URINE >25 /HPF (0-5)
[2017-01-24] MEDS ORDERED: cefTRIAXone 1 GM in SODIUM CHLORIDE 0.9% MINIBAG 100 ML IV STA (21:56)
[2017-01-24] MEDS ORDERED: cefTRIAXone 1 GM VIAL ONE (22:10)
--- NOTE | 2017-01-24 23:51 | CT Preliminary Report ---
Exam: CT KUB IMPRESSION: 1. Moderate left-sided hydronephrosis due to an obstructing stone at the left UPJ measuring 8.2 mm. 2. There are at least 3 additional punctate left mid and upper kidney stones. No right-sided kidney s tones visualized. 3. Prior bowel surgery with a right lower quadrant ostomy. No bowel obstruction. Appendix is not visu alized. Colon is predominantly decompressed. 4. There is soft tissue extending from the right aspect of the anus into the right ischioanal fossa, with appearance suggestive of right-sided perianal fistula/abscess. [facility] SITE ID: [id number]
--- NOTE | 2017-01-24 23:54 | CT Report ---
EXAM: CT ABDOMEN AND PELVIS (CT KUB) EXAM DATE: 01/24/2017 11:35 PM. CLINICAL HISTORY: Left flank pain; history of stones and has UTI. COMPARISONS: 12/16/2016. TECHNIQUE: Routine axial helical CT imaging was performed through the abdomen and pelvis without IV c ontrast. Reconstructions: Coronal and sagittal. In accordance with CT protocol optimization, one or more of the following dose reduction techniques w ere utilized for this exam: automated exposure control, adjustment of mA and/or KV based on patient s ize, or use of iterative reconstructive technique. FINDINGS: Right Kidney/Ureter: No stones. No hydronephrosis or hydroureter. No definite renal mass within the c onfines of a non-contrast exam. Left Kidney/Ureter: There is mild to moderate left hydronephrosis due to an obstructing stone at the left UPJ measuring 8.2 mm (image 70 series 3). There are 3 punctate stones within the left mid to low er kidney. No definite renal mass within the confines of a non-contrast exam. Abdominal Solid Organs: Abdominal parenchymal organs are without significant abnormality within the c onfines of a noncontrast exam. Bowel: Prior bowel surgery with a right lower quadrant ostomy. Appendix is not visualized. Lymph Nodes: No definite pathologic lymphadenopathy. Fluid: No significant ascites. Vasculature: Normal caliber aorta. Pelvis: No bladder stones. Small soft tissue density abnormalities extending from the level of the re ctum into the right ischioanal fossa noted (image 164 series 3), worrisome for a renal fistula/absces s. Bones: No definite suspicious bony lesions demonstrated. Lower Chest: No significant lung base consolidation or effusion. IMPRESSION: 1. Moderate left-sided hydronephrosis due to an obstructing stone at the left UPJ measuring 8.2 mm. 2. There are at least 3 additional punctate left mid and upper kidney stones. No right-sided kidney s tones visualized. 3. Prior bowel surgery with a right lower quadrant ostomy. No bowel obstruction. Appendix is not visu alized. Colon is predominantly decompressed. 4. There is soft tissue extending from the right aspect of the anus into the right ischioanal fossa, with appearance suggestive of right-sided perianal fistula/abscess. [facility] Referring Provider Line: [phone] SITE ID: [id number]
[2017-01-24 23:58] VITALS: BP 139/75
--- NOTE | 2017-01-25 00:07 | ED Physician Documentation ---
PD HPI ABD PAIN - Stated complaint Stated Complaint: SIDE PX - Chief complaint Chief Complaint: Abd Pain - History obtained from History obtained from: Patient - History of Present Illness Timing - onset: How many hours ago (1-2), Today Timing - duration: Hours (1-2 hours ago, had onset of severe sharp stabbing left flank pain. Feeling similar to kidney stones in the past. Had not noted dysuria recently. She has had frequent UTIs as well. Hisoty ro Crohns and recent ileostomy, and has been having pain from that. Also has fistula perirectally for which she has been on Cipro for about 2 weeks. Has not had vaginal discharge. Denies rash nor sores in back.) Timing - details: Abrupt onset, Still present Quality: Sharp, Pain Location: LLQ Radiation: Left flank Improved by: No: Eating, Vomiting, Position Worsened by: No: Eating, Moving, Breathing, Position, Palpation Associated symptoms: Nausea, Vomiting (few times). No: Fever, Diarrhea, Constipation, Dysuria, Chest pain Similar symptoms before: Diagnosis (kidney stones, has passed them in the past, without need for prior stents/surgery.) Recently seen: Emergency Dept (end of November for problems related to recent ileostomy, done for problems from Crohns. Had CT at that time which showed incidental left kidney stones, with largest being about 7 mm.) Review of Systems Constitutional: denies: Fever, Chills Nose: denies: Rhinorrhea / runny nose, Congestion Throat: denies: Sore throat Respiratory: denies: Cough GI: reports: Nausea. 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 HEENT: None Psych: Anxiety Musculoskeletal: Chronic back pain Derm: Other - Past Surgical History Past Surgical History: Yes General: Bowel surgery, Gastric surgery, Colonoscopy, Other Ortho: ACL reconstruction /APARTMENT LEASING CONSULTANT: Dilation and currettage - Present Medications Home Medications: Ambulatory Orders Medication Instructions Recorded Confirmed Albuterol Sulfate [Albuterol 8.5 gm IH Q4H PRN 02/13/15 12/22/16 Sulfate Hfa] Cetirizine [ZyrTEC] 20 mg PO DAILY 02/13/15 12/22/16 Diphenhydramine HCl [Benadryl] 25 mg PO BID 02/13/15 12/22/16 Omeprazole 20 mg PO DAILY 02/13/15 12/22/16 Ranitidine HCl 150 mg PO DAILY 02/13/15 12/22/16 Promethazine [Phenergan] 25 mg PO Q6H PRN #20 tab 05/01/15 12/22/16 Epinephrine HCl in 0.9 % NaCl 1 mg IM PRN PRN 05/12/15 12/22/16 [Epinephrin-0.9% NaCl 16 mg/250] Morphine ER 30 mg PO .FREQ 01/04/16 12/22/16 Entyvio Infusion 1 mg INJ MAINTENANCE.IV 02/28/16 12/22/16 oxyCODONE [Roxicodone] 10 mg PO Q6H PRN #20 tablet 06/02/16 12/22/16 Dicyclomine [Bentyl] 10 tab PO BID 11/21/16 12/22/16 Sertraline HCl [Zoloft] 100 mg PO DAILY 11/21/16 12/22/16 Prednisone 30 mg PO DAILY 12/09/16 12/22/16 Ciprofloxacin HCl [Cipro] 500 mg PO BID #19 tablet 01/16/17 Cephalexin [Keflex] 500 mg PO QID #24 capsule 01/25/17 Naproxen 375 mg PO BID #20 tablet 01/25/17 oxyCODONE [Roxicodone] 10 mg PO Q4H PRN #20 tablet 01/25/17 - Allergies Allergies/Adverse Reactions: Allergies Allergy/AdvReac Type Severity Reaction Status Date / Time infliximab [From Remicade] Allergy Severe Anaphylaxis Verified 01/16/17 21:04 Iodinated Contrast- Oral and Allergy Severe Hives Verified 01/16/17 21:04 IV Dye [Iodinated Contrast Media - IV Dye] iodine Allergy Severe Anaphylaxis Verified 01/16/17 21:04 shellfish derived Allergy Severe Nausea/Vomi Verified 01/16/17 21:04 ting Sulfa (Sulfonamide Allergy Severe Anaphylaxis Verified 01/16/17 21:04 Antibiotics) ,Hives venom-honey bee Allergy Severe Anaphylaxis Verified 01/16/17 21:04 ,Hives certolizumab pegol Allergy Intermediate Respiratory Verified 01/16/17 21:04 [From Cimzia] ,Nausea latex Allergy Intermediate Rash Verified 01/16/17 21:04 - Social History Does the pt smoke?: No Smoking Status: Former smoker Does the pt drink ETOH?: No Does the pt have substance abuse?: No - Immunizations Immunizations are current?: Yes - POLST Patient has POLST: No PD ED PE NORMAL - Vitals Vital signs reviewed: Yes - General General: Alert and oriented X 3, Well developed/nourished, Other (appears in significant pain) - Neck Neck: Supple, no meningeal sign, No adenopathy - Cardiac Cardiac: RRR, No murmur - Respiratory Respiratory: Clear bilaterally - Abdomen Abdomen: Normal bowel sounds, Soft, Non distended, No organomegaly, Other (left sided ileostomy noted. Normal surrounding skin. ) - Female Female : Deferred - Rectal Rectal: Deferred - Back Back: Other (left CVA tenderness) - Derm Derm: Normal color, Warm and dry - Neuro Neuro: Alert and oriented X 3, No motor deficit, Normal speech Results - Vitals Vitals: Vital Signs - 24 hr 01/24/17 01/24/17 01/24/17 20:04 20:49 21:12 Temperature 36.0 C L Heart Rate 94 72 72 Respiratory 20 20 16 Rate Blood Pressure 159/112 H 151/98 H 132/67 H O2 Saturation 100 99 98 01/24/17 01/24/17 22:15 23:58 Temperature Heart Rate 80 69 Respiratory 16 18 Rate Blood Pressure 133/79 H 139/75 H O2 Saturation 100 98 Oxygen O2 Source Room air - Labs Labs: Laboratory Tests 01/24/17 01/24/17 01/24/17 20:40 20:40 21:18 WBC 8.5 RBC 4.46 Hgb 13.0 Hct 39.0 MCV 87.6 MCH 29.1 MCHC 33.2 RDW 14.3 Plt Count 237 MPV 8.2 Neut # 5.8 Lymph # 2.0 [place] # 0.5 Eos # 0.1 Baso # 0.1 Absolute Nucleated RBC 0.01 Nucleated RBCs 0.1 Sodium 137 Potassium 3.9 Chloride 103 Carbon Dioxide 25 Anion Gap 9.0 BUN 13 Creatinine 0.7 Estimated GFR (MDRD) 95 Glucose 98 Calcium 9.1 Total Bilirubin 0.7 AST 20 ALT 11 Alkaline Phosphatase 52 Total Protein 7.3 Albumin 3.9 Globulin 3.4 Albumin/Globulin Ratio 1.1 Lipase 22 Urine Color YELLOW Urine Clarity CLOUDY Urine pH 5.5 Ur Specific [place] 1.025 Urine Protein TRACE Urine Glucose (UA) NEGATIVE Urine Ketones NEGATIVE Urine Occult Blood LARGE H Urine Nitrite POSITIVE H Urine Bilirubin NEGATIVE Urine Urobilinogen 0.2 (NORMAL) Ur Leukocyte Esterase MODERATE H Urine RBC 11-25 H Urine WBC >25 H Ur Epithelial Cells RARE Renal Tubular Ur Squamous Epith Cells MANY Squamous H Urine Bacteria Many H Urine Casts 26-50 Hyaline Casts Urine Starch PRESENT Urine Mucus Moderate Strands Ur Microscopic Review INDICATED Urine Culture Comments NOT INDICATED - Rads (name of study) KUB CT Radiology: Prelim report reviewed (proximal ureteral stone with mild hydronephrosis. ) PD MEDICAL DECISION MAKING - ED course Complexity details: considered differential (She is in considerable pain. States she has been taking baseline pain meds regularly as Rx. Has not run out. So the pain is acutely the new stone. She does have some pain med tolerance, so took repeated doses of Dilaudid to control the current pain of the ureteral stone. It did improve with repeated doses. She does have UTI, but has no fever and normal WBC. Had not had preceding flank pain. So seems cystitis and not pyelonephritis per se. Important as the patient is feeling improved with pain meds, given IV dose of Rocephin (has been on PO Cipro for fistula, so developed UTI on this) and is feeling better, would prefer to go home. If it were pyelo with stone/obstruction, then more urgent stenting would be appropriate. I offered potential admission and more appropriate transfer to [facility] or such with Urology and hospitalist. However she would like to try going home with oral meds. To return if pain not controlled well orally or if worsening illness (fevers, malaise, vomiting, etc) that may suggest pyelo rather than just cystitis. ), d/w patient Departure - Departure Disposition: 01 Home, Self Care Clinical Impression: Ureterolithiasis, Abdominal pain Urinary tract infection Qualifiers: Urinary tract infection type: acute cystitis Hematuria presence: with hematuria Qualified Code(s): N30.01 - Acute cystitis with hematuria Condition: Stable Record reviewed to determine appropriate education?: Yes Instructions: ED Stone Renal W [place], ED UTI Cystitis Female Follow-Up: [facility] [Provider Group] Devika Latham DO [Primary Care Provider] - Prescriptions: Cephalexin [Keflex] 500 mg PO QID #24 capsule Naproxen 375 mg PO BID #20 tablet oxyCODONE [Roxicodone] 10 mg PO Q4H PRN #20 tablet PRN Reason: Pain Comments: Drink lots of fluids. Continue your Morphine twice daily. Increase the Oxycodone 10 mg to every 3-4 hours as needed for acute pain of the kidney stone. Add Naproxen twice daily for a week. Cephalexin 4 times daily for UTI. Return if worsening/ not controlled pain. Also if fevers, vomiting, general sickness, as there would be concern of kidney infection and it can get "blocked " because of the stone and not clear with just antibiotics. Call Urologist if not better in couple days. See your Pain Specialist Thursday as planned. Forms: Activity restrictions Discharge Date/Time: 01/25/17 00:17
== END 2017-01-25 00:17 | disposition home or self-care (01) ==
LOC: ED 20:01
DX: N20.1 Calculus of ureter (principal); N30.01 Acute cystitis with hematuria; Z87.440 Personal history of urinary (tract) infections; Z87.891 Personal history of nicotine dependence; Z93.2 Ileostomy status; Z98.890 Other specified postprocedural states
CPT/HCPCS: 36415; 74176; 80053; 81001; 83690; 85025; 96374; 96375; 96376; 99284; J1170; 81003; 87086

== ENCOUNTER 2017-01-28 17:00 | Emergency (ER) | payer MEDICAID ==
[2017-01-28] MEDS ORDERED: SODIUM CHLORIDE 0.9% 1,000 ML IV ONE ×2 (17:12→17:14)
[2017-01-28] MEDS ORDERED: ONDANSETRON 4 MG/2 ML VIAL IVP STA (17:12)
[2017-01-28] MEDS ORDERED: ONDANSETRON 4 MG/2 ML VIAL ONE (17:14)
[2017-01-28] MEDS ORDERED: HYDROmorphone 1 MG/ML SYRINGE IVP STA ×2 (17:26→19:08)
[2017-01-28] MEDS ORDERED: HYDROmorphone 1 MG/ML SYRINGE ONE ×2 (17:37→19:09)
[2017-01-28 17:38] LABS: BASOPHILS # (AUTO) 0.1 10^3/uL (0.0-0.1); BASOPHILS % (AUTO) 0.8 %; EOSINOPHILS # (AUTO) 0.1 10^3/uL (0.0-0.7); EOSINOPHILS % (AUTO) 0.7 %; HCT - HEMATOCRIT 43.6 % (37.0-47.0); HGB - HEMOGLOBIN 14.5 g/dL (12.0-16.0); LYMPHOCYTES # (AUTO) 2.1 10^3/uL (1.5-3.5); LYMPHOCYTES % (AUTO) 26.8 %; MEAN CORPUSCULAR HEMOGLOBIN 28.9 pg (27.0-31.0); MEAN CORPUSCULAR HGB CONC 33.3 g/dL (32.0-36.0); MEAN CORPUSCULAR VOLUME 86.9 fL (81.0-99.0); MEAN PLATELET VOLUME 8.5 fL (7.9-10.8); MONOCYTES # (AUTO) 0.4 10^3/uL (0.0-1.0); MONOCYTES % (AUTO) 5.1 %; NEUTROPHILS # (AUTO) 5.2 10^3/uL (1.5-6.6); NEUTROPHILS % (AUTO) 66.6 %; RED BLOOD COUNT 5.02 10^6/uL (4.20-5.40); RED CELL DISTRIBUTION WIDTH 14.2 % (12.0-15.0); UNCORRECTED WHITE BLOOD COUNT 7.8 x10^3/uL; WHITE BLOOD COUNT 7.8 x10^3/uL (4.8-10.8)
[2017-01-28 18:08] LABS: ALBUMIN/GLOBULIN RATIO 1.1 (1.0-2.2); BILIRUBIN,TOTAL 0.6 mg/dL (0.2-1.0); CALCIUM 9.4 mg/dL (8.5-10.3); CREATININE 0.6 mg/dL (0.4-1.0); POTASSIUM 3.4 mmol/L (3.5-5.0); TOTAL PROTEIN 7.6 g/dL (6.7-8.2)
[2017-01-28 18:27] LABS: HCG UR QUAL NEGATIVE
--- NOTE | 2017-01-28 18:41 | Ultrasound Preliminary Report ---
Exam: US Retroperitoneal IMPRESSION: Mild left hydronephrosis; no stone visualized and both ureteral jets present. [facility] SITE ID: [id number]
--- NOTE | 2017-01-28 18:44 | Ultrasound Report ---
EXAM: RENAL ULTRASOUND EXAM DATE: 01/28/2017 06:19 PM. CLINICAL HISTORY: Nausea and vomit ting recent UPJ stone on CT, left. COMPARISON: 10/15/2015. Also CT scan dated 12/16/2016. TECHNIQUE: Real-time scanning was performed with static images obtained. Difficult study due to habit us. FINDINGS: Right Kidney: 13.0 x 4.6 x 5.9 cm. Normal echotexture with no stones, contour-deforming masses, or hy dronephrosis. Left Kidney: 13.1 x 6.5 x 6.1 cm. Mild hydronephrosis with slight dilation of renal pelvis. No stone visualized. Otherwise unremarkable. Bladder: Bilateral jets seen. The prevoid bladder volume was 284. cc. IMPRESSION: Mild left hydronephrosis; no stone visualized and both ureteral jets present. [facility] Referring Provider Line: [phone] SITE ID: [id number]
[2017-01-28 19:10] LABS: BILIRUBIN,URINE NEGATIVE (NEGATIVE); PH,URINE 7.5 PH (5.0-7.5); UA CHARGE (STRIP ONLY) YES; UR CULTURE IF IND NOT INDICATED
--- NOTE | 2017-01-28 19:30 | XRAY Preliminary Report ---
Exam: XR Abdomen 1 View IMPRESSION: No change of left ureteral stone. [facility] SITE ID: [id number]
--- NOTE | 2017-01-28 19:32 | XRAY Report ---
EXAM: ABDOMEN RADIOGRAPHY EXAM DATE: 01/28/2017 07:10 PM. CLINICAL HISTORY: Recent left UPJ stone. COMPARISON: CT KUB dated 24 January 2017. TECHNIQUE: 1 view. FINDINGS: Bowel Gas Pattern: Scattered collections of large and small bowel gas with no focal dilation. Small a mount of stool. Other: Previous described proximal left ureteral stone unchanged in position at about the L3 level. IMPRESSION: No change of left ureteral stone. [facility] Referring Provider Line: [phone] SITE ID: [id number]
[2017-01-28] MEDS ORDERED: HYDROmorphone 2 MG TABLET PO STA (20:06)
[2017-01-28] MEDS ORDERED: HYDROmorphone 2 MG TABLET ONE (20:19)
--- NOTE | 2017-01-28 20:25 | ED Physician Documentation ---
PD HPI ABD PAIN - Stated complaint Stated Complaint: VOMITING - Chief complaint Chief Complaint: Abd Pain - History obtained from History obtained from: Patient, Family - Additional information Additional information: This patient is a 36-year-old female with history of Crohn's disease with fistulization to the rectum. She had a diverting ileostomy in 2014 that was revised recently. More recently she was diagnosed with a kidney stone at the left UPJ. The stone is 8 mm. She chose to go home and presented tonight with a complaint of nausea vomiting and abdominal pain. The patient however think she is having symptoms more related to opiate withdrawal. She is on morphine and oxycodone. She has been out of the morphine for 2 days. She is trying to see a new pain physician with an overall goal of getting off of her pain medications. She has had multiple episodes of nausea vomiting. Her ileostomy output has been adequate. She has had lower urinary symptoms without fever. There is been no complaints of chest pain or shortness of breath. Review of systems: For pertinent positive and negatives in the review of systems please see history of present illness. Otherwise all other systems have been reviewed and are negative. Dragon disclaimer: Parts of this medical record were created using voice recognition technology. Because of the inherent limitations of this system occasional same sounding word substitutions do occur and persist despite proofreading. Please read the document for context. 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 HEENT: None Psych: Anxiety Musculoskeletal: Chronic back pain Derm: Other - Past Surgical History Past Surgical History: Yes General: Bowel surgery, Gastric surgery, Colonoscopy, Other Ortho: ACL reconstruction /QUALITY IMPROVEMENT ENGINEER: Dilation and currettage - Present Medications Home Medications: Ambulatory Orders Medication Instructions Recorded Confirmed Albuterol Sulfate [Albuterol 8.5 gm IH Q4H PRN 02/13/15 12/22/16 Sulfate Hfa] Cetirizine [ZyrTEC] 20 mg PO DAILY 02/13/15 12/22/16 Diphenhydramine HCl [Benadryl] 25 mg PO BID 02/13/15 12/22/16 Omeprazole 20 mg PO DAILY 02/13/15 12/22/16 Ranitidine HCl 150 mg PO DAILY 02/13/15 12/22/16 Promethazine [Phenergan] 25 mg PO Q6H PRN #20 tab 05/01/15 12/22/16 Epinephrine HCl in 0.9 % NaCl 1 mg IM PRN PRN 05/12/15 12/22/16 [Epinephrin-0.9% NaCl 16 mg/250] Morphine ER 30 mg PO .FREQ 01/04/16 12/22/16 Entyvio Infusion 1 mg INJ MAINTENANCE.IV 02/28/16 12/22/16 oxyCODONE [Roxicodone] 10 mg PO Q6H PRN #20 tablet 06/02/16 12/22/16 Dicyclomine [Bentyl] 10 tab PO BID 11/21/16 12/22/16 Sertraline HCl [Zoloft] 100 mg PO DAILY 11/21/16 12/22/16 Prednisone 30 mg PO DAILY 12/09/16 12/22/16 Cephalexin [Keflex] 500 mg PO QID #24 capsule 01/25/17 Naproxen 375 mg PO BID #20 tablet 01/25/17 HYDROmorphone [Dilaudid] 2 mg PO Q6H PRN #20 tablet 01/28/17 - Allergies Allergies/Adverse Reactions: Allergies Allergy/AdvReac Type Severity Reaction Status Date / Time infliximab [From Remicade] Allergy Severe Anaphylaxis Verified 01/16/17 21:04 Iodinated Contrast- Oral and Allergy Severe Hives Verified 01/16/17 21:04 IV Dye [Iodinated Contrast Media - IV Dye] iodine Allergy Severe Anaphylaxis Verified 01/16/17 21:04 shellfish derived Allergy Severe Nausea/Vomi Verified 01/16/17 21:04 ting Sulfa (Sulfonamide Allergy Severe Anaphylaxis Verified 01/16/17 21:04 Antibiotics) ,Hives venom-honey bee Allergy Severe Anaphylaxis Verified 01/16/17 21:04 ,Hives certolizumab pegol Allergy Intermediate Respiratory Verified 01/16/17 21:04 [From Cimzia] ,Nausea latex Allergy Intermediate Rash Verified 01/16/17 21:04 - Social History Does the pt smoke?: No Smoking Status: Former smoker Does the pt drink ETOH?: No Does the pt have substance abuse?: No - Immunizations Immunizations are current?: Yes - POLST Patient has POLST: No PD ED PE NORMAL - General General: Other (Large habitus female in mild distress secondary to nausea and vomiting) - HEENT HEENT: Atraumatic - Cardiac Cardiac: RRR, No murmur, No gallop, No rub - Respiratory Respiratory: No respiratory distress, Clear bilaterally - Abdomen Abdomen: Other (Obese abdomen with mild diffuse tenderness. Bowel tones increased Ileostomy appears to be functioning) - Rectal Rectal: Other (No evidence of perirectal fistula on examination) - Extremities Extremities: No deformity, No tenderness to palpate - Neuro Neuro: Alert and oriented X 3, No motor deficit, No sensory deficit Results - Vitals Vitals: Vital Signs - 24 hr 01/28/17 01/28/17 01/28/17 17:03 18:24 19:16 Temperature 36.2 C L Heart Rate 91 66 66 Respiratory 20 20 18 Rate Blood Pressure 153/102 H 119/66 119/74 O2 Saturation 100 99 99 Oxygen O2 Source Room air - Labs Labs: Laboratory Tests 01/28/17 01/28/17 01/28/17 17:28 17:48 18:12 WBC 7.8 RBC 5.02 Hgb 14.5 Hct 43.6 MCV 86.9 MCH 28.9 MCHC 33.3 RDW 14.2 Plt Count 255 MPV 8.5 Neut # 5.2 Lymph # 2.1 [place] # 0.4 Eos # 0.1 Baso # 0.1 Absolute Nucleated RBC 0.00 Nucleated RBCs 0.0 Sodium 140 Potassium 3.4 L Chloride 103 Carbon Dioxide 25 Anion Gap 12.0 BUN 9 Creatinine 0.6 Estimated GFR (MDRD) 114 Glucose 98 Calcium 9.4 Total Bilirubin 0.6 AST 17 ALT 10 Alkaline Phosphatase 51 Total Protein 7.6 Albumin 3.9 Globulin 3.7 Albumin/Globulin Ratio 1.1 Lipase 25 Urine Color Urine Clarity Urine pH Ur Specific [place] Urine Protein Urine Glucose (UA) Urine Ketones Urine Occult Blood Urine Nitrite Urine Bilirubin Urine Urobilinogen Ur Leukocyte Esterase Ur Microscopic Review Urine Culture Comments Urine HCG, Qual Urine Opiates Screen POSITIVE H Ur Oxycodone Screen POSITIVE H Urine Methadone Screen NEGATIVE Ur Propoxyphene Screen NEGATIVE Ur Barbiturates Screen NEGATIVE Ur Tricyclics Screen NEGATIVE Ur Phencyclidine Scrn NEGATIVE Ur Amphetamine Screen NEGATIVE U Methamphetamines Scrn NEGATIVE U Benzodiazepines Scrn NEGATIVE Urine Cocaine Screen NEGATIVE U Cannabinoids Screen POSITIVE H 01/28/17 01/28/17 18:12 18:12 WBC RBC Hgb Hct MCV MCH MCHC RDW Plt Count MPV Neut # Lymph # [place] # Eos # Baso # Absolute Nucleated RBC Nucleated RBCs Sodium Potassium Chloride Carbon Dioxide Anion Gap BUN Creatinine Estimated GFR (MDRD) Glucose Calcium Total Bilirubin AST ALT Alkaline Phosphatase Total Protein Albumin Globulin Albumin/Globulin Ratio Lipase Urine Color YELLOW Urine Clarity CLEAR Urine pH 7.5 Ur Specific [place] 1.010 1.010 Urine Protein NEGATIVE Urine Glucose (UA) NEGATIVE Urine Ketones NEGATIVE Urine Occult Blood NEGATIVE Urine Nitrite NEGATIVE Urine Bilirubin NEGATIVE Urine Urobilinogen 0.2 (NORMAL) Ur Leukocyte Esterase NEGATIVE Ur Microscopic Review NOT INDICATED Urine Culture Comments NOT INDICATED Urine HCG, Qual NEGATIVE Urine Opiates Screen Ur Oxycodone Screen Urine Methadone Screen Ur Propoxyphene Screen Ur Barbiturates Screen Ur Tricyclics Screen Ur Phencyclidine Scrn Ur Amphetamine Screen U Methamphetamines Scrn U Benzodiazepines Scrn Urine Cocaine Screen U Cannabinoids Screen PD MEDICAL DECISION MAKING - ED course Complexity details: reviewed old records, reviewed results, re-evaluated patient , considered differential, d/w patient, d/w family ED course: Patient is a 36-year-old female with history of severe Crohn's disease with fistulization and consequently had a diverting ileostomy. More recently the patient was diagnosed with a left UPJ stone 8 mm. She did well and wanted to follow-up with her physician and seek outpatient evaluation of the stone but came back tonight with nausea and vomiting. She does site that she thinks this is probably mostly due to narcotic withdrawal however my concern was for complications related to the kidney stone which very likely will not pass. We did do an ultrasound and there is only mild hydronephrosis and jets of the ureter suggesting that the stone is nonobstructing. A regular plain film KUB was done which showed the stone in the normal position which we suspected. Routine lab work on this patient including urinalysis is unremarkable. She improved markedly with the administration of opiates. At this point in time she feels much better she is attempting to get a new pain physician with a goal of decreasing her pain medication dosing. She does have a engaged primary care physician who is attempting to get her urology consultation at this time she does not want to be transferred for urgent treatment of this stone. Given the fact that this stone is nonobstructing and there is no evidence of infection this does not need to be done tonight. At this point in time she looks and feels much better Disposition: To home Clinical impression: 1. Left UPJ stone 8 mm-still present on plain film KUB but no evidence of significant obstruction of the left kidney on ultrasound 2. Suspect significant component of opiate withdrawal as causing symptoms tonight Departure - Departure Disposition: 01 Home, Self Care Clinical Impression: Kidney stone on left side Condition: Good Instructions: Kidney Stones Follow-Up: Devika Latham DO [Primary Care Provider] - Prescriptions: HYDROmorphone [Dilaudid] 2 mg PO Q6H PRN #20 tablet PRN Reason: Pain Comments: You have a large stone at 8 mm in the proximal left kidney. This stone will not move and needs to be addressed. Currently it is not obstructing the left kidney appreciably. Please talk to your doctor about it tomorrow and proceed with urology consultation
[2017-01-28 20:32] VITALS: BP 121/70
== END 2017-01-28 20:32 | disposition home or self-care (01) ==
LOC: ED 17:00
DX: N20.0 Calculus of kidney (principal); I10 Essential (primary) hypertension; Z87.891 Personal history of nicotine dependence; Z93.2 Ileostomy status
CPT/HCPCS: 36415; 74000; 76770; 80053; 80306; 81003; 81025; 83690; 85025; 96374; 96375; 96376; 99283; 99284; A9270; J1170; 81001; 87086

== ENCOUNTER 2017-02-25 14:27 | Emergency (ER) | payer MEDICAID ==
[2017-02-25 14:40] VITALS: BP 150/100
[2017-02-25] MEDS ORDERED: predniSONE 20 MG TABLET PO STA (15:54)
[2017-02-25] MEDS ORDERED: SODIUM CHLORIDE 0.9% 1,000 ML IV ONE (15:54)
[2017-02-25] MEDS ORDERED: ACETAMINOPHEN 1,000 MG/100 ML 100 ML IV STA (15:54)
--- NOTE | 2017-02-25 16:26 | ED Physician Documentation ---
History of Present Illness - Stated complaint Stated Complaint: FACIAL SWELLING/ HENRY - Chief complaint Chief Complaint: Abd Pain - Additonal information Additional information: hx from pt 36 female denies preg hx severe crohns with fistulas s/p diverting ileostomy in 2015 recently revised to Er today with sx of a crohns flare - increased abd cramping some NV and a facial rash and HENRY which she states is typical for her when she gets a crohns flare still having good output into ileostomy bag no fevers Review of Systems Constitutional: denies: Fever, Chills Cardiac: denies: Chest pain / pressure Respiratory: denies: Dyspnea, Cough GI: reports: Abdominal Pain, Nausea, Vomiting, Other (output into ileostomy bag) Endocrine: denies: Easy bruising / bleeding Immunocompromised: denies: Immunocompromised PD PAST MEDICAL HISTORY - Past Medical History Cardiovascular: Hypertension Respiratory: Asthma Neuro: Headache/migraine, Motion sickness Endocrine/Autoimmune: None GI: GERD, Crohn's disease 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 : Kidney 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 HEENT: None Psych: Anxiety Musculoskeletal: Chronic back pain Derm: Other - Past Surgical History Past Surgical History: Yes General: Bowel surgery, Gastric surgery, Colonoscopy, Other Ortho: ACL reconstruction /OB/GYN NURSE: Dilation and currettage - Present Medications Home Medications: Ambulatory Orders Medication Instructions Recorded Confirmed Albuterol Sulfate [Albuterol 8.5 gm IH Q4H PRN 02/13/15 02/25/17 Sulfate Hfa] Cetirizine [ZyrTEC] 20 mg PO DAILY 02/13/15 02/25/17 Omeprazole 20 mg PO DAILY 02/13/15 02/25/17 Ranitidine HCl 150 mg PO DAILY 02/13/15 02/25/17 Entyvio Infusion 1 mg INJ MAINTENANCE.IV 02/28/16 02/25/17 Dicyclomine [Bentyl] 10 tab PO BID 11/21/16 02/25/17 Sertraline HCl [Zoloft] 100 mg PO DAILY 11/21/16 02/25/17 Cephalexin [Keflex] 500 mg PO QID #24 capsule 01/25/17 02/25/17 - Allergies Allergies/Adverse Reactions: Allergies Allergy/AdvReac Type Severity Reaction Status Date / Time infliximab [From Remicade] Allergy Severe Anaphylaxis Verified 01/16/17 21:04 Iodinated Contrast- Oral and Allergy Severe Hives Verified 01/16/17 21:04 IV Dye [Iodinated Contrast Media - IV Dye] iodine Allergy Severe Anaphylaxis Verified 01/16/17 21:04 shellfish derived Allergy Severe Nausea/Vomi Verified 01/16/17 21:04 ting Sulfa (Sulfonamide Allergy Severe Anaphylaxis Verified 01/16/17 21:04 Antibiotics) ,Hives venom-honey bee Allergy Severe Anaphylaxis Verified 01/16/17 21:04 ,Hives certolizumab pegol Allergy Intermediate Respiratory Verified 01/16/17 21:04 [From Cimzia] ,Nausea latex Allergy Intermediate Rash Verified 01/16/17 21:04 - Social History Does the pt smoke?: No Smoking Status: Former smoker Does the pt drink ETOH?: No Does the pt have substance abuse?: No - Immunizations Immunizations are current?: Yes - POLST Patient has POLST: No PD ED PE NORMAL - Vitals Vital signs reviewed: Yes - Cardiac Cardiac: RRR - Respiratory Respiratory: No respiratory distress, Clear bilaterally - Abdomen Abdomen: Soft, Other (moderate TTP to left side of abd s rebound or guarding, ileostomy bag to right side of abdomen with gas and liquid stool) - Derm Derm: Other (erythematous rash across her cheeks) - Neuro Neuro: Alert and oriented X 3 Results - Vitals Vitals: Vital Signs - 24 hr 02/25/17 14:38 Temperature 36.7 C Heart Rate 76 Respiratory 17 Rate Blood Pressure 150/100 H O2 Saturation 100 Oxygen O2 Source Room air PD MEDICAL DECISION MAKING - ED course ED course: ordered IVG and steroids and planned to dc on steroids as pt advised she is normally txed with pt advised me she had recently managed to stop taking narcotics at all so I advised I would give orfirmev for pain pt seemed cheerful and amenable to this plan but when nurse went in she was upset, said she had taken tylenol already (though not on her med list and she did not mention that when i asked what she took for her Crohns) and then said she was leaving and would just call her own GI doctor and left without completion of care I went to speak to her to see what she was upset about but she had already left Departure - Departure Disposition: 07 Against Medical Advice Clinical Impression: Crohn disease Qualifiers: Gastrointestinal tract location: unspecified location Digestive disease complication type: unspecified complication Qualified Code(s): K50.919 - Crohn' s disease, unspecified, with unspecified complications Discharge Date/Time: 02/25/17 16:34
== END 2017-02-25 16:34 | disposition left against medical advice (07) ==
LOC: ED 14:27
DX: K50.919 Crohn's disease, unspecified, with unspecified complications (principal); Z53.29 Procedure and treatment not carried out because of patient's decision for other reasons; I10 Essential (primary) hypertension; K21.9 Gastro-esophageal reflux disease without esophagitis; J45.909 Unspecified asthma, uncomplicated; Z93.1 Gastrostomy status; Z98.84 Bariatric surgery status; Z87.891 Personal history of nicotine dependence
CPT/HCPCS: 99282; 99283

== ENCOUNTER 2017-04-24 18:21 | Emergency (ER) | payer MEDICAID ==
[2017-04-24] MEDS ORDERED: SODIUM CHLORIDE 0.9% 1,000 ML IV ONE ×3 (19:08→22:20)
[2017-04-24] MEDS ORDERED: ONDANSETRON 4 MG/2 ML VIAL IVP STA ×2 (19:14→23:26)
[2017-04-24] MEDS ORDERED: ONDANSETRON 4 MG/2 ML VIAL ONE ×2 (19:23→23:32)
[2017-04-24 19:29] LABS: BASOPHILS % (AUTO) 0.4 %; EOSINOPHILS % (AUTO) 0.1 %; HCT - HEMATOCRIT 38.3 % (37.0-47.0); HGB - HEMOGLOBIN 12.8 g/dL (12.0-16.0); LYMPHOCYTES # (AUTO) 0.5 10^3/uL (1.5-3.5); LYMPHOCYTES % (AUTO) 4.2 %; MEAN CORPUSCULAR HEMOGLOBIN 28.8 pg (27.0-31.0); MEAN CORPUSCULAR HGB CONC 33.5 g/dL (32.0-36.0); MEAN CORPUSCULAR VOLUME 85.8 fL (81.0-99.0); MEAN PLATELET VOLUME 8.7 fL (7.9-10.8); MONOCYTES # (AUTO) 0.5 10^3/uL (0.0-1.0); MONOCYTES % (AUTO) 4.6 %; NEUTROPHILS # (AUTO) 10.7 10^3/uL (1.5-6.6); NEUTROPHILS % (AUTO) 90.7 %; RED BLOOD COUNT 4.46 10^6/uL (4.20-5.40); RED CELL DISTRIBUTION WIDTH 14.2 % (12.0-15.0); UNCORRECTED WHITE BLOOD COUNT 11.8 x10^3/uL; WHITE BLOOD COUNT 11.8 x10^3/uL (4.8-10.8)
[2017-04-24 19:45] LABS: ALBUMIN/GLOBULIN RATIO 0.9 (1.0-2.2); CALCIUM 8.6 mg/dL (8.5-10.3); CREATININE 1.1 mg/dL (0.4-1.0); POTASSIUM 3.5 mmol/L (3.5-5.0); TOTAL PROTEIN 7.3 g/dL (6.7-8.2)
[2017-04-24] MEDS ORDERED: PROMETHAZINE INJ 25 MG in SODIUM CHLORIDE 0.9% 50 ML IV STA (20:19)
[2017-04-24] MEDS ORDERED: HYDROmorphone 1 MG/ML CARPUJECT IVP STA (20:23)
--- NOTE | 2017-04-24 20:27 | ED Physician Documentation ---
History of Present Illness - Stated complaint Stated Complaint: VOMITING/FEVER - Chief complaint Chief Complaint: Abd Pain - History obtained from History obtained from: Patient, Family - History of Present Illness Timing: Yesterday Pain level max: 10 Pain level now: 10 Improved by: nothing Worsened by: nothing - Additonal information Additional information: Patient is a 36-year-old female who has a diverting ileostomy in place, states that she ate at [id number] yesterday and has developed vomiting since that time. Unable to keep her meds down. States she had a fever of 103 at home. States has chronic diarrhea into the ostomy, but it does not seem to be putting out anymore into the ostomy than usual. Denies any localized abdominal tenderness, states everything hurts. States "I am just sick" Review of Systems Ten Systems: 10 systems reviewed and negative Constitutional: reports: Fever Ears: denies: Ear pain Nose: denies: Rhinorrhea / runny nose, Congestion Throat: denies: Sore throat Cardiac: denies: Chest pain / pressure Respiratory: denies: Cough, Wheezing GI: reports: Nausea, Vomiting : denies: Dysuria Skin: denies: Rash Musculoskeletal: denies: Neck pain, Back pain Neurologic: denies: Focal weakness, Numbness, Headache PD PAST MEDICAL HISTORY - Past Medical History Cardiovascular: Hypertension Respiratory: Asthma Neuro: Headache/migraine, Motion sickness Endocrine/Autoimmune: None GI: GERD, Crohn's disease 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 HEENT: None Psych: Anxiety Musculoskeletal: Chronic back pain Derm: Other - Past Surgical History Past Surgical History: Yes General: Bowel surgery, Gastric surgery, Colonoscopy, Other Ortho: ACL reconstruction /QUARTER SEAMER: Dilation and currettage - Present Medications Home Medications: Ambulatory Orders Medication Instructions Recorded Confirmed Albuterol Sulfate [Albuterol 8.5 gm IH Q4H PRN 02/13/15 04/24/17 Sulfate Hfa] Cetirizine [ZyrTEC] 20 mg PO DAILY 02/13/15 04/24/17 Omeprazole 20 mg PO DAILY 02/13/15 04/24/17 Ranitidine HCl 150 mg PO DAILY 02/13/15 04/24/17 Entyvio Infusion 1 mg INJ MAINTENANCE.IV 02/28/16 04/24/17 Dicyclomine [Bentyl] 10 tab PO BID 11/21/16 04/24/17 Sertraline HCl [Zoloft] 100 mg PO DAILY 11/21/16 04/24/17 Ondansetron Odt [Zofran] 4 mg TL Q6H PRN #10 tablet 04/24/17 Promethazine Supp [Phenergan Supp] 25 mg IA Q6HR PRN #14 supp 04/24/17 Promethazine [Phenergan] 25 mg PO Q6H PRN #10 tab 04/24/17 - Allergies Allergies/Adverse Reactions: Allergies Allergy/AdvReac Type Severity Reaction Status Date / Time infliximab [From Remicade] Allergy Severe Anaphylaxis Verified 04/24/17 19:34 Iodinated Contrast- Oral and Allergy Severe Hives Verified 04/24/17 19:34 IV Dye [Iodinated Contrast Media - IV Dye] iodine Allergy Severe Anaphylaxis Verified 04/24/17 19:34 shellfish derived Allergy Severe Nausea/Vomi Verified 04/24/17 19:34 ting Sulfa (Sulfonamide Allergy Severe Anaphylaxis Verified 04/24/17 19:34 Antibiotics) ,Hives venom-honey bee Allergy Severe Anaphylaxis Verified 04/24/17 19:34 ,Hives certolizumab pegol Allergy Intermediate Respiratory Verified 04/24/17 19:34 [From Cimzia] ,Nausea latex Allergy Intermediate Rash Verified 04/24/17 19:34 - Social History Does the pt smoke?: No Smoking Status: Never smoker Does the pt drink ETOH?: No Does the pt have substance abuse?: No - Immunizations Immunizations are current?: Yes - POLST Patient has POLST: No PD ED PE NORMAL - Vitals Vital signs reviewed: Yes - General General: Alert and oriented X 3, No acute distress - HEENT HEENT: Other (dry lips and tongue) - Neck Neck: Supple, no meningeal sign - Cardiac Cardiac: RRR - Respiratory Respiratory: No respiratory distress, Clear bilaterally - Abdomen Abdomen: Soft, Other (mild diffuse TTP without peritoneal signs. ileostomy in place) - Derm Derm: Warm and dry, No rash - Extremities Extremities: No edema - Neuro Neuro: Alert and oriented X 3 - Psych Psych: Normal mood, Normal affect Results - Vitals Vitals: Vital Signs - 24 hr 04/24/17 04/24/17 04/24/17 18:26 20:34 20:44 Temperature 37.5 C Heart Rate 79 101 H 103 H Respiratory 26 H 18 18 Rate Blood Pressure 119/70 137/92 H 137/92 H O2 Saturation 99 100 100 04/24/17 04/24/17 04/24/17 20:58 21:50 22:17 Temperature Heart Rate 102 H 99 102 H Respiratory 16 18 16 Rate Blood Pressure 133/61 H 123/70 138/80 H O2 Saturation 100 100 100 04/24/17 04/24/17 04/24/17 23:14 23:23 23:37 Temperature 36.3 C L 37.8 C H 36.5 C Heart Rate 104 H 103 H 96 Respiratory 20 17 16 Rate Blood Pressure 118/72 110/80 129/74 O2 Saturation 100 96 100 Oxygen O2 Source Room air - Labs Labs: Laboratory Tests 04/24/17 04/24/17 04/24/17 19:18 19:18 19:18 WBC 11.8 H RBC 4.46 Hgb 12.8 Hct 38.3 MCV 85.8 MCH 28.8 MCHC 33.5 RDW 14.2 Plt Count 161 MPV 8.7 Neut # 10.7 H Lymph # 0.5 L [place] # 0.5 Eos # 0.0 Baso # 0.0 Absolute Nucleated RBC 0.00 Nucleated RBC % 0.0 Sodium 134 L Potassium 3.5 Chloride 97 L Carbon Dioxide 25 Anion Gap 12.0 BUN 13 Creatinine 1.1 H Estimated GFR (MDRD) 57 L Glucose 118 H Calcium 8.6 Phosphorus 1.4 L Magnesium 1.3 L Total Bilirubin 1.0 AST 27 ALT 11 Alkaline Phosphatase 70 Total Protein 7.3 Albumin 3.4 Globulin 3.9 Albumin/Globulin Ratio 0.9 L Lipase 22 Influenza A (Rapid) Influenza B (Rapid) Influenza Types A,B Ag 04/24/17 19:30 WBC RBC Hgb Hct MCV MCH MCHC RDW Plt Count MPV Neut # Lymph # [place] # Eos # Baso # Absolute Nucleated RBC Nucleated RBC % Sodium Potassium Chloride Carbon Dioxide Anion Gap BUN Creatinine Estimated GFR (MDRD) Glucose Calcium Phosphorus Magnesium Total Bilirubin AST ALT Alkaline Phosphatase Total Protein Albumin Globulin Albumin/Globulin Ratio Lipase Influenza A (Rapid) Negative Influenza B (Rapid) Negative Influenza Types A,B Ag - PD MEDICAL DECISION MAKING - ED course Complexity details: reviewed old records, reviewed results, re-evaluated patient , considered differential, d/w patient ED course: Patient presents to the emergency department with what appears to be food poisoning versus viral gastroenteritis. Given IV fluids and feels better. Given Zofran and Phenergan. Tolerating p.o. without difficulty. Ate 2 popsicles and drank a bottle of water. No recurrent vomiting. Abdomen is soft , nontender nondistended on serial exam. Also given magnesium IV. We will continue supportive care and follow-up with her doctor for further evaluation. Patient counseled regarding signs and symptoms for which I believe and urgent re -evaluation would be necessary. Patient with good understanding of and agreement to plan and is comfortable going home at this time This document was made in part using voice recognition software. While efforts are made to proofread this document, sound alike and grammatical errors may occur. Departure - Departure Disposition: 01 Home, Self Care Clinical Impression: Vomiting Qualifiers: Vomiting type: unspecified Vomiting Intractability: non-intractable Nausea presence: with nausea Qualified Code(s): R11.2 - Nausea with vomiting, unspecified Condition: Good Instructions: ED Nausea Vomiting Follow-Up: your,doctor in 3 days [Other] Prescriptions: Promethazine Supp [Phenergan Supp] 25 mg IA Q6HR PRN #14 supp PRN Reason: Nausea / Vomiting Ondansetron Odt [Zofran] 4 mg TL Q6H PRN #10 tablet PRN Reason: Nausea / Vomiting Promethazine [Phenergan] 25 mg PO Q6H PRN #10 tab PRN Reason: Nausea / Vomiting Comments: Drink plenty of fluids and rest. Return if you worsen. Your blood pressure was elevated today on check in to the emergency department. This does not mean that you have hypertension, it is a common phenomenon to check into the emergency department and have elevated blood pressure. I recommend that you see your primary care physician within the week to have it rechecked when you're feeling better. Discharge Date/Time: 04/24/17 23:42
[2017-04-24] MEDS ORDERED: PROMETHAZINE 25 MG/1 ML VIAL ONE (20:29)
[2017-04-24] MEDS ORDERED: HYDROmorphone 1 MG/ML SYRINGE ONE (20:38)
[2017-04-24 20:42] LABS: MAGNESIUM 1.3 mg/dL (1.7-2.8); PHOSPHORUS 1.4 mg/dL (2.5-4.6)
[2017-04-24] MEDS ORDERED: MAGNESIUM SULFATE 2 GRAM 2 GM/50 ML BAG IV ONE ×2 (21:51→22:29)
[2017-04-24] MEDS ORDERED: DICYCLOMINE 10 MG CAPSULE PO STA (22:20)
[2017-04-24] MEDS ORDERED: DICYCLOMINE 10 MG CAPSULE PO ONE (22:29)
[2017-04-24 23:38] VITALS: BP 129/74
== END 2017-04-24 23:42 | disposition home or self-care (01) ==
LOC: ED 18:21
DX: R11.2 Nausea with vomiting, unspecified (principal); I10 Essential (primary) hypertension; Z93.2 Ileostomy status
CPT/HCPCS: 36415; 80053; 83690; 83735; 84100; 85025; 87275; 87276; 96365; 96367; 96375; 96376; 99284; 99285; A9270; J1170; J7040

== ENCOUNTER 2017-04-28 07:58 | Outpatient (CLI) | payer MEDICAID | END 2017-04-28 07:59 | disposition critical access hospital (66) | LOC: EMS 07:58 | PROVIDERS: ATTEND Surgery | DX: R11.2 Nausea with vomiting, unspecified (principal) | CPT/HCPCS: A0425; A0427 ==

== ENCOUNTER 2017-04-28 08:19 | Observation (INO) | payer MEDICAID ==
[2017-04-28] MEDS ORDERED: diphenhydrAMINE INJ 50 MG/ML VIAL IVP STA (08:30)
[2017-04-28] MEDS ORDERED: SODIUM CHLORIDE 0.9% 1,000 ML IV ONE (08:30)
[2017-04-28] MEDS ORDERED: PROCHLORPERAZINE 10 MG/2 ML VIAL IVP STA ×2 (08:30→13:18)
[2017-04-28] MEDS ORDERED: PROCHLORPERAZINE 10 MG/2 ML VIAL ONE ×2 (08:42→13:29)
[2017-04-28] MEDS ORDERED: diphenhydrAMINE INJ 50 MG/ML VIAL ONE (08:42)
--- NOTE | 2017-04-28 08:45 | ED Physician Documentation ---
PD HPI NVD - Stated complaint Stated Complaint: N/V - Chief complaint Chief Complaint: Abd Pain - History obtained from History obtained from: Patient, EMS - History of Present Illness Timing - onset: How many days ago (5) Timing - duration: Days (5) Timing - details: Gradual onset, Still present Associated symptoms: Abdominal pain, Near syncope / syncope, Loss of appetite, Weight loss Contributing factors: Bad food Improved by: Laying still, Vomiting Worsened by: Moving, Position, Palpation Similar symptoms before: Has not had sx before Recently seen: Emergency Dept - Additonal information Additional information: 36-year-old female with a history of Crohn's disease developed nausea and vomiting shortly after eating at [id number] 5 days ago. She ate a meal heavy and fat and nausea vomiting and abdominal pain occurred and has been persistent since. She was seen in the ED on the day this started and received 3 liters of saline IV. The patient states that she has been taking both Zofran and promethazine and is still having a very difficult time keeping anything down. Her pain is persistent her nausea is persistent. She has had something similar to this previously with a bowel obstruction. She has had output from her ostomy. Review of Systems Constitutional: denies: Fever Eyes: denies: Decreased vision Ears: denies: Ear pain Nose: denies: Congestion Throat: denies: Sore throat Cardiac: denies: Chest pain / pressure, Palpitations Respiratory: denies: Dyspnea, Cough GI: reports: Abdominal Pain, Nausea, Vomiting, Diarrhea : denies: Dysuria, Frequency Skin: denies: Rash Musculoskeletal: denies: Neck pain, Back pain, Extremity pain Neurologic: reports: Generalized weakness. 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 TECHNICIAN: Dilation and currettage - Present Medications Home Medications: Ambulatory Orders Medication Instructions Recorded Confirmed Albuterol Sulfate [Albuterol 8.5 gm IH Q4H PRN 02/13/15 04/24/17 Sulfate Hfa] Cetirizine [ZyrTEC] 20 mg PO DAILY 02/13/15 04/24/17 Omeprazole 20 mg PO DAILY 02/13/15 04/24/17 Ranitidine HCl 150 mg PO DAILY 02/13/15 04/24/17 Entyvio Infusion 1 mg INJ MAINTENANCE.IV 02/28/16 04/24/17 Dicyclomine [Bentyl] 10 tab PO BID 11/21/16 04/24/17 Sertraline HCl [Zoloft] 100 mg PO DAILY 11/21/16 04/24/17 Ondansetron Odt [Zofran] 4 mg TL Q6H PRN #10 tablet 04/24/17 Promethazine Supp [Phenergan Supp] 25 mg LA Q6HR PRN #14 supp 04/24/17 Promethazine [Phenergan] 25 mg PO Q6H PRN #10 tab 04/24/17 - Allergies Allergies/Adverse Reactions: Allergies Allergy/AdvReac Type Severity Reaction Status Date / Time infliximab [From Remicade] Allergy Severe Anaphylaxis Verified 04/28/17 08:23 Iodinated Contrast- Oral and Allergy Severe Hives Verified 04/28/17 08:23 IV Dye [Iodinated Contrast Media - IV Dye] iodine Allergy Severe Anaphylaxis Verified 04/28/17 08:23 shellfish derived Allergy Severe Nausea/Vomi Verified 04/28/17 08:23 ting Sulfa (Sulfonamide Allergy Severe Anaphylaxis Verified 04/28/17 08:23 Antibiotics) ,Hives venom-honey bee Allergy Severe Anaphylaxis Verified 04/28/17 08:23 ,Hives certolizumab pegol Allergy Intermediate Respiratory Verified 04/28/17 08:23 [From Cimzia] ,Nausea latex Allergy Intermediate Rash Verified 04/28/17 08:23 - Social History Does the pt smoke?: No Smoking Status: Never smoker Does the pt drink ETOH?: No Does the pt have substance abuse?: No - Immunizations Immunizations are current?: Yes - POLST Patient has POLST: No PD ED PE NORMAL - Vitals Vital signs reviewed: Yes (normal ) - General General: Well developed/nourished, Other (scomiking on arrival) - HEENT HEENT: Atraumatic, PERRL, EOMI, Other (dry mucous membranes) - Neck Neck: Supple, no meningeal sign, No bony TTP - Cardiac Cardiac: RRR, No murmur - Respiratory Respiratory: No respiratory distress, Clear bilaterally - Abdomen Abdomen: Soft, Other (R upper quadrant and epigastric tenderness to palpation ) - Back Back: No CVA TTP, No spinal TTP - Derm Derm: Normal color, Warm and dry, No rash - Extremities Extremities: No deformity, No edema - Neuro Neuro: No motor deficit, No sensory deficit - Psych Psych: Other (mood is helpless and the affect is flat) Results - Vitals Vitals: Vital Signs - 24 hr 04/28/17 04/28/17 04/28/17 08:20 10:10 11:47 Temperature 37.5 C 36.3 C L 37.7 C H Heart Rate 87 94 94 Respiratory 20 20 20 Rate Blood Pressure 107/68 127/74 124/69 O2 Saturation 97 99 97 04/28/17 13:16 Temperature 37.5 C Heart Rate 95 Respiratory 20 Rate Blood Pressure 130/87 H O2 Saturation 93 Oxygen O2 Source Room air - Labs Labs: Laboratory Tests 04/28/17 04/28/17 04/28/17 08:45 08:45 12:05 WBC 3.8 L RBC 4.02 L Hgb 11.3 L Hct 33.9 L MCV 84.5 MCH 28.2 MCHC 33.3 RDW 15.3 H Plt Count 113 L MPV 9.0 Neut # 3.1 Lymph # 0.4 L [place] # 0.3 Eos # 0.0 Baso # 0.0 Absolute Nucleated RBC 0.01 Nucleated RBC % 0.2 Sodium 137 Potassium 3.2 L Chloride 107 Carbon Dioxide 21 Anion Gap 9.0 BUN 15 Creatinine 1.1 H Estimated GFR (MDRD) 57 L Glucose 105 H Calcium 8.4 L Total Bilirubin 0.4 AST 24 ALT 13 Alkaline Phosphatase 83 Total Protein 6.5 L Albumin 2.5 L Globulin 4.0 Albumin/Globulin Ratio 0.6 L Lipase 13 L Urine Color YELLOW Urine Clarity CLEAR Urine pH 6.5 Ur Specific Booker 1.010 Urine Protein 100 H Urine Glucose (UA) NEGATIVE Urine Ketones NEGATIVE Urine Occult Blood MODERATE H Urine Nitrite NEGATIVE Urine Bilirubin NEGATIVE Urine Urobilinogen 0.2 (NORMAL) Ur Leukocyte Esterase SMALL H Urine RBC 0-5 Urine WBC >25 H Urine WBC Clumps PRESENT Ur Squamous Epith Cells FEW Squamous Urine Bacteria Many H Ur Microscopic Review INDICATED Urine Culture Comments INDICATED Urine HCG, Qual NEGATIVE Procedures - IVC sono (time) 0830 Bedside IVC sono: IVC measures (cm) (1.21), IVC collapsed c insp (cm) (complete) , Dehydration PD MEDICAL DECISION MAKING - ED course Complexity details: reviewed old records, reviewed results, re-evaluated patient , considered differential, d/w patient ED course: 36-year-old female with Crohn's disease has developed gastroenteritis over the past 5 days and she has become dehydrated. She is scheduled to get a biologic today for control of her Crohn's disease and she had to cancel this. She does have low grade fever she does not have elevated white blood cell count but she does have marked leukocytosis in the urine consistent with infection. She is administered intravenous saline in the emergency department intravenous Compazine and IV Rocephin. The hospitalist is consulted in the case and graciously agrees to care for the patient in the hospital. Departure - Departure Disposition: ED Place in Observation Clinical Impression: Dehydration, Gastroenteritis Urinary tract infection Qualifiers: Urinary tract infection type: acute cystitis Hematuria presence: without hematuria Qualified Code(s): N30.00 - Acute cystitis without hematuria Condition: Stable
[2017-04-28 08:58] LABS: BASOPHILS % (AUTO) 0.4 %; EOSINOPHILS % (AUTO) 0.1 %; HCT - HEMATOCRIT 33.9 % (37.0-47.0); HGB - HEMOGLOBIN 11.3 g/dL (12.0-16.0); LYMPHOCYTES # (AUTO) 0.4 10^3/uL (1.5-3.5); LYMPHOCYTES % (AUTO) 9.6 %; MEAN CORPUSCULAR HEMOGLOBIN 28.2 pg (27.0-31.0); MEAN CORPUSCULAR HGB CONC 33.3 g/dL (32.0-36.0); MEAN CORPUSCULAR VOLUME 84.5 fL (81.0-99.0); MONOCYTES # (AUTO) 0.3 10^3/uL (0.0-1.0); MONOCYTES % (AUTO) 8.2 %; NEUTROPHILS # (AUTO) 3.1 10^3/uL (1.5-6.6); NEUTROPHILS % (AUTO) 81.7 %; NUCLEATED RED BLOOD CELLS AUTO 0.2 /100WBC; RED BLOOD COUNT 4.02 10^6/uL (4.20-5.40); RED CELL DISTRIBUTION WIDTH 15.3 % (12.0-15.0); UNCORRECTED WHITE BLOOD COUNT 3.8 x10^3/uL; WHITE BLOOD COUNT 3.8 x10^3/uL (4.8-10.8)
[2017-04-28 09:11] LABS: ALBUMIN/GLOBULIN RATIO 0.6 (1.0-2.2); BILIRUBIN,TOTAL 0.4 mg/dL (0.2-1.0); CALCIUM 8.4 mg/dL (8.5-10.3); CREATININE 1.1 mg/dL (0.4-1.0); POTASSIUM 3.2 mmol/L (3.5-5.0); TOTAL PROTEIN 6.5 g/dL (6.7-8.2)
[2017-04-28] MEDS ORDERED: HYDROmorphone 1 MG/ML CARPUJECT IVP STA (09:13)
[2017-04-28] MEDS ORDERED: HYDROmorphone 1 MG/ML SYRINGE ONE (09:23)
[2017-04-28] MEDS ORDERED: POTASSIUM CHLOR 10 MEQ/100 ML 10 MEQ/100 ML BAG IV ONE ×3 (09:54→14:08)
--- NOTE | 2017-04-28 10:21 | Ultrasound Report ---
RIGHT UPPER QUADRANT ULTRASOUND: 04/28/2017 CLINICAL INDICATION: Vomiting, pain. TECHNIQUE: Real-time scanning was performed with claim service representative static images obtained. FINDINGS: Imaging is limited by habitus. The liver is markedly enlarged, measuring 22 cm, with diff use increase in echogenicity. The common bile duct measures 4 mm. Multiple gallstones are seen in a n otherwise unremarkable gallbladder. The right kidney measures 13.6 cm, and demonstrates no hydrone phrosis. No definite free fluid is seen. IMPRESSION: CHOLELITHIASIS, WITHOUT EVIDENCE OF BILIARY OBSTRUCTION. ENLARGED LIVER, WITH FATTY INF ILTRATION. JOB #: [id number] EXT JOB #:[id number]
[2017-04-28 12:14] LABS: BILIRUBIN,URINE NEGATIVE (NEGATIVE); PH,URINE 6.5 PH (5.0-7.5)
[2017-04-28 12:17] LABS: HCG UR QUAL NEGATIVE; UA w/ MICROSCOPIC CHARGE YES
[2017-04-28 12:46] LABS: UR CULTURE IF IND INDICATED; WBC,URINE >25 /HPF (0-5)
[2017-04-28] MEDS ORDERED: cefTRIAXone 1 GM in SODIUM CHLORIDE 0.9% MINIBAG 100 ML IV STA (13:09)
[2017-04-28] MEDS ORDERED: cefTRIAXone 1 GM VIAL ONE (13:29)
[2017-04-28] MEDS ORDERED: SODIUM CHLORIDE FLUSH 0.9% 10 ML SYRINGE IVP PRN (13:51)
[2017-04-28] MEDS ORDERED: ZOLPIDEM 5 MG TABLET PO PRN (13:51)
--- NOTE | 2017-04-28 14:10 | HISTORY & PHYSICAL EXAMINATION ---
Chief Complaint - Chief Complaint Chief Complaint: nausea and vomiting, body aches History of Present Illness - Admitted From Admitted From:: emergence department - History Obtained From History obtained from: patient - History of Present Illness HPI Comment/Other: This is a 36-year-old female with a past medical history significant for Crohn's disease, HTN, Asthma, Headache/migraine, Motion sickness, GERD, kidney stone, anxiety, chronic back pain, bowel obstruction, who present emergence department for evaluation of nausea, vomiting, body aches, and flu symptoms. Patient report she had these symptoms for five days, she only ate some clear liquid diet. Patient report only she had these flu symptoms in her home, no other family member had these symptoms. Patient report she had low grade of fever at home but she did not measure how much temperature she had. Patient report she visited this ER three days, she was prescribed Zofran and Promethazine, but her nausea and vomiting was not controlled. Patient report she had nausea, vomiting and abdominal discomfort after she ate a meal heavy with fat. US of abdomen reveals multiple gallstones but without evidence of biliary obstruction, unremarkable gallbladder. Patient report she had a similar symptom before when she had a bowel obstruction, but patient has output from her ostomy. Patient report her nausea is persistent, her body aches is persistent. patient report she had chronic headache as well. UA reveals pt with positive for UTI. In the lab test, patient does not have elevated white blood cell count. Patient denies chest pain, palpitation, shortness of breath, cough, dysuria, hemturia, vision issue. Patient is admitted for UTI, virus gastroenteritis with nausea, vomiting, and dehydration. 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 [place] Living arrangement: At home Living Situation: With spouse/s.o. Social History Notes: pt denies cigarette smoking, alcohol abuse, illicit drug abuse - Substance History Use: Uses substance without health or social issues: NONE Abuse: Recurrent use of substance despite neg consequences: NONE Dependence: Experiences withdrawal or developed tolerances: NONE - POLST Patient has POLST: No POLST Status: Full Code Meds/Allgy - Home Medications Home Medications: Ambulatory Orders Medication Instructions Recorded Confirmed Albuterol Sulfate [Albuterol 8.5 gm IH Q4H PRN 02/13/15 04/28/17 Sulfate Hfa] Cetirizine [ZyrTEC] 20 mg PO DAILY 02/13/15 04/28/17 Omeprazole 20 mg PO DAILY 02/13/15 04/28/17 Ranitidine HCl 150 mg PO DAILY 02/13/15 04/28/17 Entyvio Infusion 1 mg INJ UD 02/28/16 04/28/17 Dicyclomine [Bentyl] 10 tab PO BID 11/21/16 04/28/17 Sertraline HCl [Zoloft] 100 mg PO DAILY 11/21/16 04/28/17 Promethazine [Phenergan] 25 mg PO Q6H PRN #10 tab 04/24/17 04/28/17 Mercaptopurine 50 mg TID 04/28/17 04/28/17 Ondansetron [Ondansetron Odt] 8 mg PO Q6H PRN 04/28/17 04/28/17 Sumatriptan Succinate 50 mg PO UD 04/28/17 04/28/17 - Allergies Allergies/Adverse Reactions: Allergies Allergy/AdvReac Type Severity Reaction Status Date / Time infliximab [From Remicade] Allergy Severe Anaphylaxis Verified 04/28/17 08:23 Iodinated Contrast- Oral and Allergy Severe Hives Verified 04/28/17 08:23 IV Dye [Iodinated Contrast Media - IV Dye] iodine Allergy Severe Anaphylaxis Verified 04/28/17 08:23 shellfish derived Allergy Severe Nausea/Vomi Verified 04/28/17 08:23 ting Sulfa (Sulfonamide Allergy Severe Anaphylaxis Verified 04/28/17 08:23 Antibiotics) ,Hives venom-honey bee Allergy Severe Anaphylaxis Verified 04/28/17 08:23 ,Hives certolizumab pegol Allergy Intermediate Respiratory Verified 04/28/17 08:23 [From Cimzia] ,Nausea latex Allergy Intermediate Rash Verified 04/28/17 08:23 Review of Systems - Constitutional Constitutional: reports: Fatigue, Fever, Chills, Weakness, Poor appetite. denies: Malaise, Diaphoresis, Night sweats, Weight gain, Weight loss - Eyes Eyes: denies: Pain, Irritation, Blurred vision, Spots in vision, Field loss, Vision loss, Dipolpia - Ears, Nose & Throat Ears, Nose & Throat: denies: Ear pain, Hearing loss, Hearing aids, Tinnitus, Vertigo, Nosebleeds, Postnasal drainage, Sore throat, Mouth lesions, Bleeding gums - Cardiovascular Cariovascular: denies: Irregular heart rate, Palpitations, Chest pain, Edema, Lightheadedness, Syncope, Exertional dyspnea - Respiratory Respiratory: denies: Cough, Sputum production, Wheezing, Snoring, Hemoptysis, Orthopnea, SOB at rest, SOB with exertion - Gastrointestinal Gastrointestinal: reports: Nausea, Vomiting, Poor appetite. denies: Abdominal pain, Abdominal distention, Constipation, Diarrhea, Rectal bleeding, Black stools, Bloody stools, Bile emesis, Artur blood emesis, Coffee grounds emesis, Bloating - Genitourinary Genitourinary: denies: Dysuria, Frequency, Urgency, Hematuria, Flank pain, Nocturia - Musculoskeletal Musculoskeletal: reports: Muscle aches. denies: Muscle pain, Back pain, Stiffness, Limited range of motion, Muscle weakness, Gout, Joint pain, Joint swelling - Integumentary Integumentary: denies: Rash, Lesions, Dryness, Lumps, Pigment changes - Neurological Neurological: reports: General weakness. denies: Focal weakness, Headache, Dizziness, Numbness, Memory problems, Abnormal gait, Seizures, Incoordination, Slurred speech - Psychiatric Psychiatric: denies: Depression, Anxiety, Suicidal, Delusions, Hallucinations, Homicidal - Endocrine Endocrine: denies: Polyuria, Polydypsia, Polyphagia, Intolerance to cold, Intolerance to heat - Hematologic/Lymphatic Hematologic/Lymphatic: denies: Anemia, Bruising, Petechiae, Blood clots, Lymphadenopathy, Bleeding tendencies Exam - Vital Signs Reviewed Vital Signs: Yes Vital Signs: Vital Signs x48h Temp Pulse Resp BP Pulse Ox 04/28/17 13:16 37.5 C 95 20 130/87 H 93 04/28/17 11:47 37.7 C H 94 20 124/69 97 04/28/17 10:10 36.3 C L 94 20 127/74 99 04/28/17 08:20 37.5 C 87 20 107/68 97 - Physical Exam General Appearance: positive: No acute distress, Alert. negative: Lethargic Eyes Bilateral: positive: Normal inspection, PERRL, No lid inflammation, Conjunctivae nml ENT: positive: ENT inspection nml, Pharynx nml, No signs of dehydration. negative: Purulent nasal drainage, Pharyngeal erythema, Oral lesions Neck: positive: Nml inspection, Thyroid nml, No JVD, Trachea midline. negative : Thyromegaly, Lymphadenopathy (R), Lymphadenopathy (L), Stiff neck, Carotid bruit, Swelling/bruising, Tracheal deviation Respiratory: positive: Chest non-tender, No respiratory distress, Breath sounds nml. negative: Wheezes, Rales, Rhonchi Cardiovascular: positive: Regular rate & rhythm, No murmur, No gallop. negative : Irregularly irregular, Extrasystoles, Tachycardia, Bradycardia, Systolic murmur, Diastolic murmur Peripheral Pulses: positive: 2+ Abdomen: positive: Non-tender, No organomegaly, Nml bowel sounds. negative: Tenderness, Guarding, Rebound Back: positive: Nml inspection. negative: CVA tenderness (R), CVA tenderness (L ) Skin: positive: Color nml, No rash, Warm, Dry. negative: Cyanosis, Diaphoresis , Pallor, Skin rash Extremities: positive: Non-tender, Full ROM, Nml appearance. negative: Pedal edema, Calf tenderness, Ninfa's sign/cords Neurologic/Psychiatric: positive: Oriented x3, Motor nml, Sensation nml, Mood/ affect nml. negative: Sensory loss, Facial droop, Slurred/abnml speech, Depressed mood/affect Conclusion/Plan - Problem List (1) Dehydration Conclusion/Plan: pt has N/V, slightly elevated creatinine and BUN IVF with NS daily lab test, monitor with vital (2) Gastroenteritis Conclusion/Plan: it appears pt had virus infected gastroenteritis, with N/V. Support pt, with IVF of NS clear diet now, advanced as tolerated. (3) Nausea & vomiting Conclusion/Plan: it appears caused by virus gastroenteritis. support, symptoms controlled with PRN Zofran, and Phenergan correction of electrolytic IVF with NS (4) Urinary tract infection Conclusion/Plan: treat with rocephin IV follow up UA culture and sensitive study Qualifiers: Urinary tract infection type: acute cystitis Hematuria presence: without hematuria Qualified Code(s): N30.00 - Acute cystitis without hematuria (5) Hx of Crohn's disease Conclusion/Plan: it appears no flare at this time, resume home meds, and hold mercaptopurine due to pt has virus infection at this time. (6) HTN (hypertension) Conclusion/Plan: stable, resume of home meds (7) Headache, migraine Conclusion/Plan: chronic condition. pharmacy state pt did not have meds Simatriptan in the home, Tynelol PRN now to see if controlled headache (8) Asthma Conclusion/Plan: stable, resume of home meds (9) Chronic back pain Conclusion/Plan: pain control (10) DVT prophylaxis Conclusion/Plan: SCD and lovenox, - Lab Results Fish Bones: 04/29/17 05:19 04/29/17 05:19 Issues/Core Measures - Anticipated LOS Anticipated Stay Length: Less than 2 midnights (expected less than 2 midnights)
[2017-04-28] MEDS: SODIUM CHLORIDE 0.9% 1,000 ML IV SCH ×2 (14:16→23:19)
[2017-04-28] MEDS ORDERED: LORazepam 2 MG/ML SYRINGE IVP STA (14:24)
[2017-04-28] MEDS ORDERED: LORazepam 2 MG/ML SYRINGE ONE (14:33)
[2017-04-28] MEDS: SODIUM CHLORIDE FLUSH 0.9% 10 ML SYRINGE IVP SCH ×2 (14:56→17:04)
[2017-04-28] MEDS: ONDANSETRON 4 MG/2 ML VIAL IVP PRN ×2 (15:25→21:41)
[2017-04-28] MEDS: ACETAMINOPHEN 325 MG TABLET PO PRN ×2 (16:02→21:41)
[2017-04-28] MEDS: PANTOPRAZOLE 40 MG VIAL IVP SCH (17:04)
[2017-04-28] MEDS ORDERED: ALBUTEROL NEB 2.5 MG/3 ML INH PRN ×2 (17:28→18:05)
[2017-04-28] MEDS: SUMAtriptan 25 MG TABLET PO PRN (17:48)
[2017-04-28] MEDS: PROMETHAZINE 25 MG/1 ML VIAL IM PRN (19:04)
[2017-04-28] MEDS: DICYCLOMINE 10 MG CAPSULE PO SCH (21:41)
[2017-04-29] MEDS ORDERED: ACETAMINOPHEN 1,000 MG/100 ML 100 ML IV PRN (00:05)
[2017-04-29] MEDS: oxyCOD/ACETAMIN 5 MG/325 MG TABLET PO PRN ×2 (00:12→06:26)
[2017-04-29] MEDS: ONDANSETRON 4 MG/2 ML VIAL IVP PRN (04:17)
[2017-04-29 05:55] LABS: BASOPHILS % (AUTO) 0.5 %; EOSINOPHILS % (AUTO) 0.2 %; HCT - HEMATOCRIT 32.1 % (37.0-47.0); HGB - HEMOGLOBIN 10.6 g/dL (12.0-16.0); LYMPHOCYTES # (AUTO) 0.9 10^3/uL (1.5-3.5); LYMPHOCYTES % (AUTO) 16.6 %; MEAN CORPUSCULAR HEMOGLOBIN 28.2 pg (27.0-31.0); MEAN CORPUSCULAR VOLUME 85.5 fL (81.0-99.0); MEAN PLATELET VOLUME 9.3 fL (7.9-10.8); MONOCYTES # (AUTO) 0.7 10^3/uL (0.0-1.0); MONOCYTES % (AUTO) 12.6 %; NEUTROPHILS # (AUTO) 3.9 10^3/uL (1.5-6.6); NEUTROPHILS % (AUTO) 70.1 %; RED BLOOD COUNT 3.75 10^6/uL (4.20-5.40); RED CELL DISTRIBUTION WIDTH 15.4 % (12.0-15.0); UNCORRECTED WHITE BLOOD COUNT 5.5 x10^3/uL; WHITE BLOOD COUNT 5.5 x10^3/uL (4.8-10.8)
[2017-04-29 06:05] LABS: ALBUMIN/GLOBULIN RATIO 0.6 (1.0-2.2); BILIRUBIN,TOTAL 0.3 mg/dL (0.2-1.0); MAGNESIUM 1.6 mg/dL (1.7-2.8); TOTAL PROTEIN 5.9 g/dL (6.7-8.2)
[2017-04-29] MEDS: SODIUM CHLORIDE FLUSH 0.9% 10 ML SYRINGE IVP SCH ×2 (06:27→15:40)
[2017-04-29] MEDS: PANTOPRAZOLE 40 MG VIAL IVP SCH ×2 (06:27→16:09)
[2017-04-29] MEDS ORDERED: PROMETHAZINE 25 MG/1 ML VIAL ONE (06:47)
[2017-04-29 06:50] LABS: NP AUTO DIFFERENTIAL? NO; NP MAN DIFFERENTIAL? YES; PLATELET ESTIMATE, MANUAL DECREASED (<130,000) (NORMAL); PLATELET MORPHOLOGY NORMAL APPEARANCE (NORMAL)
[2017-04-29] MEDS ORDERED: POTASSIUM CHLOR 10 MEQ/100 ML 10 MEQ/100 ML BAG IV ONE (07:46)
[2017-04-29] MEDS: SODIUM CHLORIDE 0.9% 1,000 ML IV SCH (07:50)
[2017-04-29] MEDS: PROMETHAZINE 25 MG/1 ML VIAL IM PRN (07:51)
[2017-04-29] MEDS ORDERED: MAGNESIUM OXIDE 400 MG TABLET PO SCH (08:00)
[2017-04-29] MEDS ORDERED: POTASSIUM CHLORIDE 20 MEQ TABLET PO ONE (08:00)
--- NOTE | 2017-04-29 08:39 | XRAY Preliminary Report ---
Exam: XR CHEST 1 VIEW IMPRESSION: 1. No acute disease in the chest. [facility] SITE ID: [id number]
--- NOTE | 2017-04-29 08:41 | XRAY Report ---
EXAM: CHEST RADIOGRAPHY EXAM DATE: 04/29/2017 08:27 AM. CLINICAL HISTORY: Fever. COMPARISON: 04/25/2015. 03/16/2011. TECHNIQUE: 1 view. FINDINGS: Lungs/Pleura: No focal opacities evident. No pleural effusion. No pneumothorax. Mediastinum: Within exam limitations, the cardiomediastinal contour is normal. Other: None. IMPRESSION: 1. No acute disease in the chest. [facility] Referring Provider Line: [phone] SITE ID: [id number]
[2017-04-29] MEDS: POTASSIUM CHLOR 10 MEQ/100 ML 10 MEQ/100 ML BAG IV SCH ×2 (08:58→11:11)
[2017-04-29] MEDS: DICYCLOMINE 10 MG CAPSULE PO SCH (09:00)
[2017-04-29] MEDS ORDERED: SERTRALINE 50 MG TABLET PO SCH (09:00)
[2017-04-29] MEDS ORDERED: cefTRIAXone 1 GM VIAL IVP SCH (09:00)
[2017-04-29] MEDS ORDERED: cefTRIAXone 1 GM in SODIUM CHLORIDE 0.9% 100ML 100 ML IV SCH (09:00)
[2017-04-29] MEDS ORDERED: cefTRIAXone 1 GM VIAL IV SCH (09:00)
[2017-04-29] MEDS ORDERED: CETIRIZINE 10 MG TABLET PO SCH (09:00)
[2017-04-29] MEDS ORDERED: POLYETHYLENE GLYCOL 3350 17 GM PACKET PO SCH (09:00)
[2017-04-29] MEDS ORDERED: ALBUTEROL NEB 2.5 MG/3 ML INH PRN (10:15)
[2017-04-29] MEDS ORDERED: ACETAMINOPHEN 325 MG TABLET PO PRN (11:00)
[2017-04-29] MEDS ORDERED: SUMAtriptan 25 MG TABLET PO PRN (11:43)
[2017-04-29] MEDS: SUMAtriptan 25 MG TABLET PO PRN (11:47)
[2017-04-29] MEDS ORDERED: ENOXAPARIN 40 MG/0.4 ML SYRINGE SUBQ SCH (13:00)
[2017-04-29 13:07] VITALS: BP 143/89
[2017-04-29] MEDS ORDERED: POTASSIUM CHLORIDE 20 MEQ TABLET PO SCH (15:47)
--- NOTE | 2017-04-29 15:52 | Discharge Plan ---
Discharge Plan Disposition: 01 Home, Self Care Condition: Stable Prescriptions: Ciprofloxacin HCl [Cipro] 500 mg PO BID #14 tablet Diet: Regular Activity Restrictions: Activity as Tolerated Shower Restrictions: No Weight Bearing: Full Weight Additional Instructions or Follow Up instructions: May see PCP in one week. Follow-Up Care: [facility] - Medical No Smoking: If you smoke, Please STOP! Call for help.
--- NOTE | 2017-04-29 15:55 | DISCHARGE SUMMARY ---
Discharge Summary Admit Date: 04/28/17 Discharge Date: 04/29/17 Discharging Provider: UMAÑA Primary Care Provider: pt state she is looking for new PCP now, she does not have one yet Condition at Discharge: Stable Discharge Disposition: 01 Home, Self Care Discharge Facility Name: home - DIAGNOSES Admission Diagnoses: (1) Dehydration Conclusion/Plan: pt has N/V, slightly elevated creatinine and BUN IVF with NS daily lab test, monitor with vital (2) Gastroenteritis Conclusion/Plan: it appears pt had virus infected gastroenteritis, with N/V. Support pt, with IVF of NS clear diet now, advanced as tolerated. (3) Nausea & vomiting Conclusion/Plan: it appears caused by virus gastroenteritis. support, symptoms controlled with PRN Zofran, and Phenergan correction of electrolytic IVF with NS (4) Urinary tract infection Conclusion/Plan: treat with rocephin IV follow up UA culture and sensitive study Qualifiers: Urinary tract infection type: acute cystitis Hematuria presence: without hematuria Qualified Code(s): N30.00 - Acute cystitis without hematuria (5) Hx of Crohn's disease Conclusion/Plan: it appears no flare at this time, resume home meds, and hold mercaptopurine due to pt has virus infection at this time. (6) HTN (hypertension) Conclusion/Plan: stable, resume of home meds (7) Headache, migraine Conclusion/Plan: chronic condition. pharmacy state pt did not have meds Simatriptan in the home, Tynelol PRN now to see if controlled headache (8) Asthma Conclusion/Plan: stable, resume of home meds (9) Chronic back pain Conclusion/Plan: pain control (10) DVT prophylaxis - ALLERGIES Allergies/Adverse Reactions: Allergies Allergy/AdvReac Type Severity Reaction Status Date / Time infliximab [From Remicade] Allergy Severe Anaphylaxis Verified 04/28/17 08:23 Iodinated Contrast- Oral and Allergy Severe Hives Verified 04/28/17 08:23 IV Dye [Iodinated Contrast Media - IV Dye] iodine Allergy Severe Anaphylaxis Verified 04/28/17 08:23 shellfish derived Allergy Severe Nausea/Vomi Verified 04/28/17 08:23 ting Sulfa (Sulfonamide Allergy Severe Anaphylaxis Verified 04/28/17 08:23 Antibiotics) ,Hives venom-honey bee Allergy Severe Anaphylaxis Verified 04/28/17 08:23 ,Hives certolizumab pegol Allergy Intermediate Respiratory Verified 04/28/17 08:23 [From Cimzia] ,Nausea latex Allergy Intermediate Rash Verified 04/28/17 08:23 - MEDICATIONS Home Medications: Ambulatory Orders Medication Instructions Recorded Confirmed RX: Albuterol Sulfate [Albuterol 8.5 gm IH Q4H PRN 02/13/15 04/28/17 Sulfate Hfa] RX: Cetirizine [ZyrTEC] 20 mg PO DAILY 02/13/15 04/28/17 RX: Omeprazole 20 mg PO DAILY 02/13/15 04/28/17 RX: Ranitidine HCl 150 mg PO DAILY 02/13/15 04/28/17 Entyvio Infusion 1 mg INJ UD 02/28/16 04/28/17 RX: Dicyclomine [Bentyl] 10 tab PO BID 11/21/16 04/28/17 RX: Sertraline HCl [Zoloft] 100 mg PO DAILY 11/21/16 04/28/17 RX: Promethazine [Phenergan] 25 mg PO Q6H PRN #10 tab 04/24/17 04/28/17 RX: Mercaptopurine 50 mg TID 04/28/17 04/28/17 RX: Ondansetron [Ondansetron Odt] 8 mg PO Q6H PRN 04/28/17 04/28/17 RX: Sumatriptan Succinate 50 mg PO UD 04/28/17 04/28/17 Ciprofloxacin HCl [Cipro] 500 mg PO BID #14 tablet 04/29/17 - LABS Result Diagrams: 04/29/17 05:19 04/29/17 05:19
== END 2017-04-29 16:30 | disposition home or self-care (01) ==
LOC: EDUNIT# → ED 08:19 → OBS 13:51
PROVIDERS: ADMIT Nurse Practitioner Gerontology; ATTEND Nurse Practitioner Gerontology
DX: E86.0 Dehydration (principal); A08.4 Viral intestinal infection, unspecified; N30.00 Acute cystitis without hematuria; K50.90 Crohn's disease, unspecified, without complications; I10 Essential (primary) hypertension; G43.909 Migraine, unspecified, not intractable, without status migrainosus; J45.909 Unspecified asthma, uncomplicated; G89.29 Other chronic pain; M54.9 Dorsalgia, unspecified; K21.9 Gastro-esophageal reflux disease without esophagitis; F41.9 Anxiety disorder, unspecified; Z87.442 Personal history of urinary calculi; Z93.3 Colostomy status
CPT/HCPCS: 36415; 71010; 76705; 80053; 81001; 81025; 83690; 83735; 85025; 87086; 87181; 96361; 96365; 96366; 96367; 96372; 96375; 96376; 99284; 99285; A9270; G0378; J0131; J1170; J1650; J2060; 81003

== ENCOUNTER 2017-06-08 05:58 | Outpatient (CLI) | payer MEDICAID | END 2017-06-08 05:59 | disposition critical access hospital (66) | LOC: EMS 05:58 | PROVIDERS: ATTEND Surgery | DX: R10.9 Unspecified abdominal pain (principal) | CPT/HCPCS: A0425; A0427 ==

== ENCOUNTER 2017-06-08 06:21 | Emergency (ER) | payer MEDICAID ==
[2017-06-08] MEDS ORDERED: HYDROmorphone 1 MG/ML SYRINGE IVP STA ×2 (06:26→07:15)
[2017-06-08 06:36] LABS: BASOPHILS # (AUTO) 0.1 10^3/uL (0.0-0.1); BASOPHILS % (AUTO) 0.7 %; EOSINOPHILS # (AUTO) 0.1 10^3/uL (0.0-0.7); EOSINOPHILS % (AUTO) 1.6 %; HGB - HEMOGLOBIN 12.8 g/dL (12.0-16.0); LYMPHOCYTES # (AUTO) 2.3 10^3/uL (1.5-3.5); MEAN CORPUSCULAR HEMOGLOBIN 29.5 pg (27.0-31.0); MEAN CORPUSCULAR HGB CONC 33.7 g/dL (32.0-36.0); MEAN CORPUSCULAR VOLUME 87.7 fL (81.0-99.0); MONOCYTES # (AUTO) 0.5 10^3/uL (0.0-1.0); MONOCYTES % (AUTO) 6.6 %; NEUTROPHILS # (AUTO) 5.2 10^3/uL (1.5-6.6); NEUTROPHILS % (AUTO) 63.1 %; RED BLOOD COUNT 4.33 10^6/uL (4.20-5.40); UNCORRECTED WHITE BLOOD COUNT 8.2 x10^3/uL; WHITE BLOOD COUNT 8.2 x10^3/uL (4.8-10.8)
[2017-06-08] MEDS ORDERED: HYDROmorphone 1 MG/ML SYRINGE ONE ×2 (06:37→07:30)
[2017-06-08 06:49] LABS: BILIRUBIN,TOTAL 0.2 mg/dL (0.2-1.0); CALCIUM 9.1 mg/dL (8.5-10.3); CREATININE 0.7 mg/dL (0.4-1.0); MAGNESIUM 1.7 mg/dL (1.7-2.8); PHOSPHORUS 3.9 mg/dL (2.5-4.6); POTASSIUM 3.6 mmol/L (3.5-5.0); TOTAL PROTEIN 7.6 g/dL (6.7-8.2)
[2017-06-08 06:49] LABS: BILIRUBIN,URINE NEGATIVE (NEGATIVE)
[2017-06-08 06:51] LABS: HCG UR QUAL NEGATIVE; UA w/ MICROSCOPIC CHARGE YES
[2017-06-08 07:05] LABS: UR CULTURE IF IND NOT INDICATED
--- NOTE | 2017-06-08 07:09 | ED Physician Documentation ---
PD HPI ABD PAIN - Stated complaint Stated Complaint: ABD PN/ N/V - Chief complaint Chief Complaint: Abd Pain - History obtained from History obtained from: Patient - History of Present Illness Timing - onset: Today (just the past few hours) Timing - duration: Hours Timing - details: Abrupt onset, Still present Quality: Cramping, Aching, Fullness/distended, Pain Location: RUQ (around the area of her stoma) Radiation: Lower back Improved by: Laying still Worsened by: Moving, Palpation. No: Breathing Associated symptoms: Nausea. No: Fever, Vomiting, Diarrhea, Constipation Similar symptoms before: Has not had sx before Recently seen: Not recently seen Review of Systems Constitutional: denies: Fever, Chills, Myalgias Nose: denies: Rhinorrhea / runny nose, Congestion Throat: denies: Sore throat Cardiac: denies: Chest pain / pressure, Palpitations, Pedal edema, Calf pain Respiratory: denies: Dyspnea, Cough GI: reports: Abdominal Pain, Nausea. denies: Vomiting, Diarrhea, Hematemesis, Bloody / black stool : denies: Dysuria, Frequency Skin: denies: Rash, Lesions Musculoskeletal: reports: Back pain. 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: Other : Kidney stones HEENT: None Psych: Anxiety Musculoskeletal: Chronic back pain Derm: Other - Past Surgical History Past Surgical History: Yes General: Bowel surgery, Gastric surgery, Colonoscopy, Other Ortho: ACL reconstruction /CORPORATE DIRECTOR TALENT ASSESSMENT: Dilation and currettage - Present Medications Home Medications: Ambulatory Orders Medication Instructions Recorded Confirmed Albuterol Sulfate [Albuterol 8.5 gm IH Q4H PRN 02/13/15 06/08/17 Sulfate Hfa] Cetirizine [ZyrTEC] 20 mg PO DAILY 02/13/15 06/08/17 Omeprazole 20 mg PO DAILY 02/13/15 06/08/17 Ranitidine HCl 150 mg PO DAILY 02/13/15 06/08/17 Entyvio Infusion 1 mg INJ UD 02/28/16 06/08/17 Dicyclomine [Bentyl] 10 tab PO BID 11/21/16 06/08/17 Promethazine [Phenergan] 25 mg PO Q6H PRN #10 tab 04/24/17 06/08/17 Mercaptopurine 50 mg TID 04/28/17 06/08/17 Ondansetron [Ondansetron Odt] 8 mg PO Q6H PRN 04/28/17 06/08/17 SUMAtriptan succinate [Sumatriptan 50 mg PO UD 04/28/17 06/08/17 Succinate] Dexamethasone [Decadron] 4 mg PO DAILY #5 tablet 06/08/17 Ondansetron Odt [Zofran] 4 mg TL Q6H PRN #15 tablet 06/08/17 - Allergies Allergies/Adverse Reactions: Allergies Allergy/AdvReac Type Severity Reaction Status Date / Time infliximab [From Remicade] Allergy Severe Anaphylaxis Verified 06/08/17 06:27 Iodinated Contrast- Oral and Allergy Severe Hives Verified 06/08/17 06:27 IV Dye [Iodinated Contrast Media - IV Dye] iodine Allergy Severe Anaphylaxis Verified 06/08/17 06:27 shellfish derived Allergy Severe Nausea/Vomi Verified 06/08/17 06:27 ting Sulfa (Sulfonamide Allergy Severe Anaphylaxis Verified 06/08/17 06:27 Antibiotics) ,Hives venom-honey bee Allergy Severe Anaphylaxis Verified 06/08/17 06:27 ,Hives certolizumab pegol Allergy Intermediate Respiratory Verified 06/08/17 06:27 [From Cimzia] ,Nausea latex Allergy Intermediate Rash Verified 06/08/17 06:27 - Social History Does the pt smoke?: No Smoking Status: Never smoker Does the pt drink ETOH?: No Does the pt have substance abuse?: No - Immunizations Immunizations are current?: Yes - POLST Patient has POLST: No POLST Status: Full Code PD ED PE NORMAL - Vitals Vital signs reviewed: Yes - General General: Alert and oriented X 3, Well developed/nourished, Other (appears in significant pain. Minimal output in stomal bag, which she says has been since overnight. ) - HEENT HEENT: Atraumatic, Pharynx benign - Neck Neck: Supple, no meningeal sign, No adenopathy - Cardiac Cardiac: RRR, No murmur - Respiratory Respiratory: Clear bilaterally - Abdomen Abdomen: Soft, No organomegaly, Other (stoma right mid abd, with some minimal output in bag. There is tenderness around the site with some increased bowel sounds. Abd deeper is also tender around that area. No generalized tenderness. ) - Female Female : Deferred - Rectal Rectal: Deferred - Back Back: No CVA TTP - Derm Derm: Normal color, Warm and dry - Extremities Extremities: No deformity, No tenderness to palpate, Normal ROM s pain, No edema , No calf tenderness / cord - Neuro Neuro: Alert and oriented X 3, No motor deficit, Normal speech Eye Opening: Spontaneous Motor: Obeys Commands Verbal: Oriented GCS Score: 15 - Psych Psych: Normal mood Results - Vitals Vitals: Vital Signs - 24 hr 06/08/17 06/08/17 06/08/17 06:21 08:16 10:22 Temperature 36.3 C L 36.9 C Heart Rate 90 78 87 Respiratory 24 18 16 Rate Blood Pressure 149/92 H 141/90 H 138/87 H O2 Saturation 100 100 99 Oxygen O2 Source Room air - Labs Labs: Laboratory Tests 06/08/17 06/08/17 06/08/17 02:53 06:30 06:30 WBC 8.2 RBC 4.33 Hgb 12.8 Hct 38.0 MCV 87.7 MCH 29.5 MCHC 33.7 RDW 15.0 Plt Count 229 MPV 8.0 Neut # 5.2 Lymph # 2.3 [place] # 0.5 Eos # 0.1 Baso # 0.1 Absolute Nucleated RBC 0.00 Nucleated RBC % 0.0 ESR Sodium 138 Potassium 3.6 Chloride 103 Carbon Dioxide 23 Anion Gap 12.0 BUN 18 Creatinine 0.7 Estimated GFR (MDRD) 95 Glucose 115 H Calcium 9.1 Phosphorus 3.9 Magnesium 1.7 Total Bilirubin 0.2 AST 23 ALT 11 Alkaline Phosphatase 61 Total Protein 7.6 Albumin 3.8 Globulin 3.8 Albumin/Globulin Ratio 1.0 Lipase 32 Serum HCG, Qual NEGATIVE Urine Color Urine Clarity Urine pH Ur Specific [place] Urine Protein Urine Glucose (UA) Urine Ketones Urine Occult Blood Urine Nitrite Urine Bilirubin Urine Urobilinogen Ur Leukocyte Esterase Urine RBC Urine WBC Ur Squamous Epith Cells Urine Bacteria Ur Microscopic Review Urine Culture Comments Urine HCG, Qual 06/08/17 06/08/17 06:30 06:38 WBC RBC Hgb Hct MCV MCH MCHC RDW Plt Count MPV Neut # Lymph # [place] # Eos # Baso # Absolute Nucleated RBC Nucleated RBC % ESR 25 H Sodium Potassium Chloride Carbon Dioxide Anion Gap BUN Creatinine Estimated GFR (MDRD) Glucose Calcium Phosphorus Magnesium Total Bilirubin AST ALT Alkaline Phosphatase Total Protein Albumin Globulin Albumin/Globulin Ratio Lipase Serum HCG, Qual Urine Color YELLOW Urine Clarity HAZY Urine pH 6.0 Ur Specific [place] 1.025 Urine Protein NEGATIVE Urine Glucose (UA) NEGATIVE Urine Ketones NEGATIVE Urine Occult Blood MODERATE H Urine Nitrite NEGATIVE Urine Bilirubin NEGATIVE Urine Urobilinogen 0.2 (NORMAL) Ur Leukocyte Esterase TRACE H Urine RBC 6-10 H Urine WBC 4-5 Ur Squamous Epith Cells MANY Squamous H Urine Bacteria Moderate H Ur Microscopic Review INDICATED Urine Culture Comments NOT INDICATED Urine HCG, Qual NEGATIVE - Rads (name of study) abd/pelvis CT Radiology: Prelim report reviewed (left ureteral stone with some obstruction. peristomal hernia. No signs of acute obstruction. ) PD MEDICAL DECISION MAKING - ED course Complexity details: reviewed results, re-evaluated patient (she is having less pain and starts to have increased/good output from the ileostomy and feels pain and pressure decrease. I think she had some partial obstruction or perhaps some element of incarceration of the hernia around the stoma, and it is now decompressing. She is feeling improved enough to head home after this output. ) , considered differential, d/w patient Departure - Departure Disposition: 01 Home, Self Care Clinical Impression: Para-ileostomy hernia Abdominal pain Qualifiers: Abdominal location: unspecified location Qualified Code(s): R10.9 - Unspecified abdominal pain Exacerbation of Crohn's disease Qualifiers: Digestive disease complication type: without complication Qualified Code(s): K50.90 - Crohn's disease, unspecified, without complications Condition: Stable Record reviewed to determine appropriate education?: Yes Prescriptions: Dexamethasone [Decadron] 4 mg PO DAILY #5 tablet Ondansetron Odt [Zofran] 4 mg TL Q6H PRN #15 tablet PRN Reason: Nausea / Vomiting Comments: Frequent fluids to the day. Soft food to clear liquids only for the initial part of today. Progressive able if you are feeling okay. Continue the MiraLAX twice daily for the next 2-3 days. Decadron steroid daily for 5 more days for the Crohn's flareup. Recheck if worsened symptoms again. Discharge Date/Time: 06/08/17 10:29
[2017-06-08] MEDS ORDERED: SODIUM CHLORIDE 0.9% 1,000 ML IV ONE (07:15)
[2017-06-08] MEDS ORDERED: PROCHLORPERAZINE 10 MG/2 ML VIAL IVP STA (07:15)
[2017-06-08] MEDS ORDERED: DEXAMETHASONE 10 MG/ML VIAL IVP STA (07:19)
[2017-06-08] MEDS ORDERED: DEXAMETHASONE 10 MG/ML VIAL ONE (07:30)
[2017-06-08] MEDS ORDERED: PROCHLORPERAZINE 10 MG/2 ML VIAL ONE (07:30)
--- NOTE | 2017-06-08 08:19 | CT Preliminary Report ---
Exam: CT ABDOMEN/PELVIS W/O IMPRESSION: 1. Obstructing mid left ureteral calculi measuring 5.5 mm with adjacent and slightly more proximal 3. 5 x 3 moderate calculus. There is mild to moderate left hydronephrosis. 2. Heterogeneous lower pole left renal 28 mm lesion similar compared to 01/24/2017 although increased in size compared to 04/29/2015 where it measured 14 mm. Further workup recommended. 3. Right midabdominal ostomy with parastomal hernia containing fat and bowel. No proximal or distal o bstruction. 4. New left ovarian 4.3 cm lesion. Nonemergent follow-up pelvic ultrasound recommended. [facility] SITE ID: [id number]
--- NOTE | 2017-06-08 08:36 | CT Report ---
EXAM: CT ABDOMEN AND PELVIS EXAM DATE: 06/08/2017 07:32 AM. CLINICAL HISTORY: Generalized abdominal pain since 3 AM. History of Crohn's and bowel resection. Hist ory of colostomy. COMPARISONS: 01/24/2017. 12/16/2016. 04/29/2015. TECHNIQUE: Routine helical CT imaging was performed through the abdomen and pelvis. IV contrast: None . Enteric contrast: No. Reconstructions: Coronal and sagittal. In accordance with CT protocol optimization, one or more of the following dose reduction techniques w ere utilized for this exam: automated exposure control, adjustment of mA and/or KV based on patient s ize, or use of iterative reconstructive technique. FINDINGS: Lung Bases: Lung bases are clear. Included portions of the heart are unremarkable. Small pericardial effusion. Liver: Unenhanced images of the liver are unremarkable. Gallbladder/Bile Ducts: Moderate to marked gallbladder distention. No pericholecystic edema. No bilia ry ductal dilatation. Spleen: Normal. Pancreas: Mildly atrophic. No peripancreatic edema. Adrenal Glands: Normal. Kidneys: Unenhanced images of the right kidney are unremarkable. There is mild left perinephric stran ding and mild to moderate left hydronephrosis which extends to the mid left ureter where there are 2 aligned calculi, the largest distally obstructing causing mild to moderate hydronephrosis and measuri ng 5 x 5 mm. The more proximal calculus measures 3.5 x 3 mm. Lower pole left renal and upper pole lef t renal calculi are seen. Heterogeneous lesion arises from the lower pole of the left kidney measurin g 28 mm, similar in size compared to 01/24/2017 although increased in size compared to 04/29/2015 whe re it measured 14 mm. Peritoneal Cavity/Bowel: Stomach is mildly distended and fluid-filled and unremarkable. No evidence f or small bowel obstruction. Right mid abdominal ostomy is again seen with a parastomal hernia contain ing small bowel and fat as before. No evidence for proximal or distal obstruction and the hernia also contains portions of colon. Distal colon is decompressed. No free air. No intra-abdominal fluid simran ections are identified. No diverticulitis. Appendix is not seen. Pelvic Organs: Urinary bladder is largely nondistended. Low-attenuation cystic lesion is seen arising from the left ovary measuring 4.3 x 3.3 cm, new compared to the prior study. No pelvic free fluid or pelvic adenopathy. Along the right pelvis arising from the region of the rectum/anus is soft tissue stranding extending to the right ischiorectal fossa possibly a fistulous tract as before. Vasculature: No aneurysms or other significant abnormality. Bones: Mild degenerative changes of lower thoracic and lumbar spine. Lumbar facet arthropathy. Other: None. IMPRESSION: 1. Obstructing mid left ureteral calculi measuring 5.5 mm with an adjacent and slightly more proximal 3.5 x 3 mm calculus. There is mild to moderate left hydronephrosis. 2. Heterogeneous lower pole left renal 28 mm lesion similar compared to 01/24/2017, increased in size compared to 04/29/2015 where it measured 14 mm. Further workup recommended. 3. Right midabdominal ostomy with parastomal hernia containing fat and bowel. No proximal or distal o bstruction. 4. New left ovarian 4.3 cm lesion. Nonemergent follow-up pelvic ultrasound recommended. 5. Nonobstructing left renal calculi. [facility] Referring Provider Line: [phone] SITE ID: [id number]
[2017-06-08] MEDS ORDERED: POLYETHYLENE GLYCOL 3350 17 GM PACKET PO STA (09:03)
[2017-06-08] MEDS ORDERED: POLYETHYLENE GLYCOL 3350 17 GM PACKET ONE (09:20)
[2017-06-08 10:24] VITALS: BP 138/87
== END 2017-06-08 10:29 | disposition home or self-care (01) ==
LOC: ED 06:21
DX: K43.5 Parastomal hernia without obstruction or gangrene (principal); R10.11 Right upper quadrant pain; K50.90 Crohn's disease, unspecified, without complications; Z93.2 Ileostomy status; N13.2 Hydronephrosis with renal and ureteral calculous obstruction; I10 Essential (primary) hypertension; J45.909 Unspecified asthma, uncomplicated; K21.9 Gastro-esophageal reflux disease without esophagitis; Z87.442 Personal history of urinary calculi; Z98.84 Bariatric surgery status
CPT/HCPCS: 74176; 80053; 81001; 81025; 83690; 83735; 84100; 84703; 85025; 85651; 96361; 96374; 96375; 96376; 99283; 99284; A9270; J1170; 81003; 87086

== ENCOUNTER 2017-10-10 14:36 | Emergency (ER) | payer MEDICAID ==
[2017-10-10] MEDS ORDERED: ONDANSETRON ODT 4 MG TABLET TL STA (15:00)
[2017-10-10] MEDS ORDERED: HYDROmorphone 1 MG/ML CARPUJECT IM STA (15:00)
[2017-10-10] MEDS ORDERED: predniSONE 20 MG TABLET PO STA (15:00)
[2017-10-10] MEDS ORDERED: IPRATROPIUM/ALBUTEROL 3 ML NEB INH STA (15:01)
--- NOTE | 2017-10-10 15:05 | ED Physician Documentation ---
PD HPI ABD PAIN - Stated complaint Stated Complaint: SORE THROAT/CHEST CONGESTION - Chief complaint Chief Complaint: Abd Pain - History obtained from History obtained from: Patient - History of Present Illness Timing - onset: Other (37-year-old woman with complicated Crohn's disease, has a diverting ileostomy right now. She was on an infusion therapy up until early August which was stopped due to side effects including jaundice. She is currently on no therapy for her Crohn's. Over the last week she developed severe abdominal cramping and an increase in her ostomy output without blood. She also has a productive cough with green sputum and a sore throat which makes her pain worse when she coughs.) Review of Systems Constitutional: reports: Fatigue. denies: Fever, Chills Respiratory: reports: Cough. denies: Dyspnea GI: reports: Abdominal Pain, Diarrhea. 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 : Kidney stones HEENT: None Psych: Anxiety Musculoskeletal: Chronic back pain Derm: Other - Past Surgical History Past Surgical History: Yes General: Bowel surgery, Gastric surgery, Colonoscopy, Other Ortho: ACL reconstruction /[employer]ER FEEDER: Dilation and currettage - Present Medications Home Medications: Ambulatory Orders Medication Instructions Recorded Confirmed Albuterol Sulfate [Albuterol 8.5 gm IH Q4H PRN 02/13/15 06/08/17 Sulfate Hfa] Cetirizine [ZyrTEC] 20 mg PO DAILY 02/13/15 06/08/17 Omeprazole 20 mg PO DAILY 02/13/15 06/08/17 Ranitidine HCl 150 mg PO DAILY 02/13/15 06/08/17 Entyvio Infusion 1 mg INJ UD 02/28/16 06/08/17 Dicyclomine [Bentyl] 10 tab PO BID 11/21/16 06/08/17 Promethazine [Phenergan] 25 mg PO Q6H PRN #10 tab 04/24/17 06/08/17 Mercaptopurine 50 mg TID 04/28/17 06/08/17 Ondansetron [Ondansetron Odt] 8 mg PO Q6H PRN 04/28/17 06/08/17 SUMAtriptan succinate [Sumatriptan 50 mg PO UD 04/28/17 06/08/17 Succinate] Dexamethasone [Decadron] 4 mg PO DAILY #5 tablet 06/08/17 Ondansetron Odt [Zofran] 4 mg TL Q6H PRN #15 tablet 06/08/17 Albuterol Sulfate [Proventil Hfa 1 - 2 puffs IH Q4H PRN #1 10/10/17 Inhaler] hfa.aer.ad Doxycycline Hyclate 100 mg PO BID #14 tablet 10/10/17 Oxycodone HCl/Acetaminophen 1 - 2 tab PO Q4H PRN #15 tablet 10/10/17 [Percocet 5-325 mg Tablet] predniSONE [Deltasone] 20 mg PO [id number] #21 tab 10/10/17 - Allergies Allergies/Adverse Reactions: Allergies Allergy/AdvReac Type Severity Reaction Status Date / Time infliximab [From Remicade] Allergy Severe Anaphylaxis Verified 10/10/17 14:47 Iodinated Contrast- Oral and Allergy Severe Hives Verified 10/10/17 14:47 IV Dye [Iodinated Contrast Media - IV Dye] iodine Allergy Severe Anaphylaxis Verified 10/10/17 14:47 shellfish derived Allergy Severe Nausea/Vomi Verified 10/10/17 14:47 ting Sulfa (Sulfonamide Allergy Severe Anaphylaxis Verified 10/10/17 14:47 Antibiotics) ,Hives venom-honey bee Allergy Severe Anaphylaxis Verified 10/10/17 14:47 ,Hives certolizumab pegol Allergy Intermediate Respiratory Verified 10/10/17 14:47 [From Cimzia] ,Nausea latex Allergy Intermediate Rash Verified 10/10/17 14:47 - Social History Does the pt smoke?: No Smoking Status: Never smoker Does the pt drink ETOH?: No Does the pt have substance abuse?: No - Immunizations Immunizations are current?: Yes - POLST Patient has POLST: No POLST Status: Full Code PD ED PE NORMAL - Vitals Vital signs reviewed: Yes - General General: Alert and oriented X 3, No acute distress - HEENT HEENT: PERRL, EOMI, Pharynx benign - Cardiac Cardiac: RRR, No murmur - Respiratory Respiratory: No respiratory distress, Clear bilaterally - Abdomen Abdomen: Other (Obese with an ileostomy on the right side, she is nontender with normal bowel sounds. Bedside ultrasound demonstrates no ascites.) - Extremities Extremities: No edema, No calf tenderness / cord - Neuro Neuro: Alert and oriented X 3, Normal speech Results - Vitals Vitals: Vital Signs - 24 hr 10/10/17 10/10/17 14:42 15:14 Temperature 36.2 C L Heart Rate 119 H 100 Respiratory 18 22 Rate Blood Pressure 137/95 H O2 Saturation 99 Oxygen O2 Source Room air - Labs Labs: Laboratory Tests 10/10/17 10/10/17 10/10/17 15:10 15:10 15:44 WBC 10.7 RBC 4.54 Hgb 13.3 Hct 39.7 MCV 87.4 MCH 29.3 MCHC 33.5 RDW 13.8 Plt Count 225 MPV 7.8 L Neut # 8.0 H Lymph # 2.0 [place] # 0.6 Eos # 0.1 Baso # 0.0 Absolute Nucleated RBC 0.00 Nucleated RBC % 0.0 Sodium 138 Potassium 3.7 Chloride 106 Carbon Dioxide 25 Anion Gap 7.0 BUN 19 Creatinine 0.8 Estimated GFR (MDRD) 81 L Glucose 99 Calcium 9.2 Total Bilirubin 0.4 AST 18 ALT < 10 L Alkaline Phosphatase 82 Total Protein 7.7 Albumin 3.9 Globulin 3.8 Albumin/Globulin Ratio 1.0 Lipase 22 Urine Color YELLOW Urine Clarity CLEAR Urine pH 5.0 Ur Specific [place] >=1.030 H Urine Protein NEGATIVE Urine Glucose (UA) NEGATIVE Urine Ketones TRACE Urine Occult Blood TRACE-LYSE Urine Nitrite NEGATIVE Urine Bilirubin NEGATIVE Urine Urobilinogen 0.2 (NORMAL) Ur Leukocyte Esterase NEGATIVE Ur Microscopic Review NOT INDICATED Urine Culture Comments NOT INDICATED Urine HCG, Qual NEGATIVE PD MEDICAL DECISION MAKING - ED course ED course: 37-year-old woman with apparent Crohn's flare, reassuring examination, white count only 11,000. She also has what sounds like a viral URI or bronchitis. Given the ongoing Crohn's flare not unreasonable to give antibiotics given that she is functionally immunosuppressed and antibiotics have been shown in some studies to help with Crohn's flares as well. She is also started on steroids. Departure - Departure Disposition: 01 Home, Self Care Clinical Impression: Exacerbation of Crohn's disease, Para-ileostomy hernia, Bronchitis Condition: Good Record reviewed to determine appropriate education?: Yes Instructions: Disease Crohn Dc, ED Bronchitis Asthmatic Prescriptions: Albuterol Sulfate [Proventil Hfa Inhaler] 1 - 2 puffs IH Q4H PRN #1 hfa.[email or web address] PRN Reason: Cough Doxycycline Hyclate 100 mg PO BID #14 tablet Oxycodone HCl/Acetaminophen [Percocet 5-325 mg Tablet] 1 - 2 tab PO Q4H PRN #15 tablet PRN Reason: Pain predniSONE [Deltasone] 20 mg PO [id number] #21 tab Comments: Your liver function was fine today, your bilirubin is 0.4 which is normal. Follow-up with your case resource manager and discuss restarting your Crohn's medications or new Crohn's medication for ongoing treatment. Return if worse.
[2017-10-10 15:16] LABS: BASOPHILS % (AUTO) 0.3 %; EOSINOPHILS # (AUTO) 0.1 10^3/uL (0.0-0.7); EOSINOPHILS % (AUTO) 0.8 %; HGB - HEMOGLOBIN 13.3 g/dL (12.0-16.0); LYMPHOCYTES % (AUTO) 18.4 %; MEAN CORPUSCULAR HEMOGLOBIN 29.3 pg (27.0-31.0); MEAN CORPUSCULAR HGB CONC 33.5 g/dL (32.0-36.0); MEAN CORPUSCULAR VOLUME 87.4 fL (81.0-99.0); MEAN PLATELET VOLUME 7.8 fL (7.9-10.8); MONOCYTES # (AUTO) 0.6 10^3/uL (0.0-1.0); NEUTROPHILS % (AUTO) 74.5 %; PLT - PLATELET COUNT 225 10^3/uL (130-450); RED BLOOD COUNT 4.54 10^6/uL (4.20-5.40); RED CELL DISTRIBUTION WIDTH 13.8 % (12.0-15.0); WHITE BLOOD COUNT 10.7 x10^3/uL (4.8-10.8)
[2017-10-10 15:27] LABS: ALBUMIN 3.9 g/dL (3.2-5.5); ALKALINE PHOSPHATASE 82 IU/L (42-121); ALT ALANINE AMINOTRANSFERASE < 10 IU/L (10-60); AST ASPARTATE AMINOTRANSFERASE 18 IU/L (10-42); BILIRUBIN,TOTAL 0.4 mg/dL (0.2-1.0); BUN - BLOOD UREA NITROGEN 19 mg/dL (6-20); CALCIUM 9.2 mg/dL (8.5-10.3); CARBON DIOXIDE - CO2 25 mmol/L (21-32); CHLORIDE 106 mmol/L (101-111); CREATININE 0.8 mg/dL (0.4-1.0); GFR - MDRD 81 (>89); GLUCOSE 99 mg/dL (70-100); LIPASE 22 U/L (22-51); SODIUM 138 mmol/L (135-145); TOTAL PROTEIN 7.7 g/dL (6.7-8.2)
[2017-10-10 15:48] LABS: BILIRUBIN,URINE NEGATIVE (NEGATIVE); GLUCOSE, URINE (UA) NEGATIVE (NEGATIVE); KETONES,URINE (UA) TRACE mg/dL (NEGATIVE); LEUKOCYTE ESTERASE, URINE NEGATIVE (NEGATIVE); NITRITE,URINE NEGATIVE (NEGATIVE); OCCULT BLOOD,URINE TRACE-LYSE (NEGATIVE); PROTEIN,URINE NEGATIVE (NEGATIVE); UROBILINOGEN,URINE 0.2 (NORMAL) E.U./dL (NORMAL)
[2017-10-10 15:51] LABS: CLARITY,URINE CLEAR (CLEAR); HCG UR QUAL NEGATIVE
[2017-10-10] MEDS ORDERED: oxyCOD/ACETAMIN 5 MG/325 MG TABLET PO STA (16:17)
--- NOTE | 2017-10-10 16:44 | XRAY Report ---
EXAM: CHEST RADIOGRAPHY EXAM DATE: 10/10/2017 04:20 PM. CLINICAL HISTORY: Productive cough for one week. COMPARISON: 04/29/2017. TECHNIQUE: 2 views. FINDINGS: Lungs/Pleura: No focal opacities evident. No pleural effusion. No pneumothorax. Normal volumes. Mediastinum: Heart and mediastinal contours are unremarkable. Other: Mild S-shaped scoliosis. IMPRESSION: Clear lungs. [facility] Referring Provider Line: [phone] SITE ID: [id number]
[2017-10-10 16:57] VITALS: BP 166/101
== END 2017-10-10 16:56 | disposition home or self-care (01) ==
LOC: ED 14:36
DX: K50.90 Crohn's disease, unspecified, without complications (principal); K43.5 Parastomal hernia without obstruction or gangrene; Z93.2 Ileostomy status; J40 Bronchitis, not specified as acute or chronic; I10 Essential (primary) hypertension
CPT/HCPCS: 71046; 80053; 81003; 81025; 83690; 85025; 94640; 96372; 99283; 99284; A9270; J1170; J7512; Q0162; 36415; 81001; 87086